=== PATIENT | male | born 1955 | race Caucasian/White ===

== ENCOUNTER 2019-12-11 08:41 | Outpatient (CLI) | payer OTHER, SELFPAY ==
--- NOTE | 2019-12-11 08:51 | CT_ITS ---
WS: [id number] CT ABDOMEN PELVIS TECHNIQUE: Contrast-enhanced CT of the abdomen and pelvis with coronal and sagittal reformatted image s. CLINICAL INFORMATION: ENLARGED SPLEEN COMPARISON: None. DLP: 1113.[address] scans at [facility] use at least one of these dose optimization techniques: automat ed exposure control; mA and/or kV adjustment per patient size (includes targeted exams where dose is matched to clinical indication); or iterative reconstruction. FINDINGS: Hepatomegaly with slightly cirrhotic contour to the liver. Coarse hepatic attenuation with fatty infi ltration. Splenomegaly measuring 14 cm [id number]. Recommend correlation with liver function tests. Shotty lymph nodes in the aayush hepatis and periaortic. Normal GE junction. Lung bases are well aera pedro. Adrenal glands are normal. Normal renal parenchymal enhancement. No hydronephrosis. Normal calib er abdominal aorta. Moderate aortic calcification. Cholelithiasis. Diverticulosis. No evidence of acute diverticulitis. Fat-containing umbilical hernia. Slight anteroli sthesis L5 on S1. Left L5-S1 spondylolysis. CT/CT abdomen pelvis w con* [id number] IMPRESSION: 1. Hepatomegaly and splenomegaly. Slightly cirrhotic capsular contour to the l iver with coarse fatty infiltration. Recommend correlation with cirrhosis and l iver function tests. 2. Cholelithiasis. This could be further evaluated with ultrasound. 3. Moderate abdominal aortic calcification. 4. No hydronephrosis. 5. Diverticulosis. No evidence of acute diverticulitis.
[2019-12-11] MEDS: iohexol 300 mg/mL 100 mL Btl IV (10:21)
== END 2019-12-11 08:42 | disposition home or self-care (01) ==
PROVIDERS: Family Provider Emergency Medicine Emergency Medical Services; PCP Internal Medicine; Visit Provider Emergency Medicine Emergency Medical Services
DX: R16.0 Hepatomegaly, not elsewhere classified (principal); R16.1 Splenomegaly, not elsewhere classified; K76.0 Fatty (change of) liver, not elsewhere classified; K80.80 Other cholelithiasis without obstruction; K57.90 Diverticulosis of intestine, part unspecified, without perforation or abscess without bleeding; I70.0 Atherosclerosis of aorta
CPT/HCPCS: 74177; Q9967

== ENCOUNTER 2019-12-18 12:56 | Outpatient (CLI) | payer OTHER, SELFPAY ==
[2019-12-18 13:30] LABS: Basophils % 0.5 %; Eosinophils # 0.2 10^3/uL (0.0-0.8); Eosinophils % 3.4 %; Hematocrit 41.5 % (42.0-52.0); Hemoglobin 13.1 g/dL (11.7-16.6); Lymphocytes # 1.8 10^3/uL (0.8-4.8); Lymphocytes % 32.5 %; Mean Corpuscular HGB Conc 31.6 g/dL (30.0-36.0); Mean Corpuscular Hemoglobin 30.1 pg (28.0-34.0); Mean Corpuscular Volume 95.4 fL (80-94); Mean Platelet Volume 10.3 fL (7.4-10.4); Monocytes # 0.4 10^3/uL (0.2-0.9); Monocytes % 7.1 %; Neutrophils # 3.1 10^3/uL (1.8-7.7); Neutrophils % 56.1 %; Nucleated Red Blood Cells % 0 %; Platelet Count 133 10^3/cmm (130-400); Red Blood Count 4.35 10^6/uL (4.1-5.3); Red Cell Distribution Width 17.9 % (12.1-15.1); White Blood Count 5.5 10^3/uL (4.0-10.0)
--- NOTE | 2019-12-18 15:06 | ONC CON_ITS ---
Dr. Pugh New Patient Note Patient: Ron Wang Unit #: [id number]: 1955 Dicatated By: Lul Pugh M.D.Date of Visit: Dec 18, 2019 Onc MED New Patient/Consult Referring Physician: Dr. ANNE BARAJAS M.D. History of Present Illness: Mr. Ron Wang, is a 64-year-old gentleman with history of fatty liver, recently diagnosed with iron deficiency anemia, his lab done on 11/10/2019 showed white blood count 6.1, hemoglobin 10.9 platelets 56,000, repeat CBC on 11/21/2019 showed white blood count 5 hemoglobin 10.7 crit 34.1 platelets 52,000, as per PMDs note his hemoglobin was 14 g in April 2019. Patient was started on oral iron supplement once a day in October 2019, he is tolerating it well denies any indigestion denies any constipation denies any abdominal pain or cramps., Denies any shortness of breath or palpitation, denies any melena or hematochezia but darker stools due to oral iron. No hemoptysis or hematemesis. No jaundice. No dyspnea on exertion. Patient has never received blood transfusion. Last colonoscopy was done few months back showed polyp which was removed and it was negative. Patient has history of fatty liver, now being followed by PMD. Patient has CT scan of abdomen pelvis done on 12/11/2019 which shows hepatomegaly with cirrhosis and splenomegaly, spleen is 14 cm and some shotty lymph nodes in aayush hepatis and para-aortic area. Patient denies alcohol use but smoke about 2 packs a day. Denies any night sweats, or weight loss or recent fevers or peripheral lymphadenopathy Past Medical History: Mr. Wang's medical history consists of diabetes. Past Surgical History: Mr. Wang's surgical/procedural history consists of appendectomy, cataract excision, clavical repair, and meniscus removed from right knee. Medications: Albuterol Sulfate 1 Puff(s) (of 108 (90 base) mcg/act) Aerosol Powder, Breath Activated Inhalation daily, Marilin-Keeling 1 Tablet Tablet, effervescent Oral daily, Ferrous Sulfate 1 Tablet (of 325 (65 fe) mg) Oral daily, Furosemide 1 Tablet (of 40 mg) Oral b.i.d., Lantus 20 Units (of 100 Units/mL) Subcutaneous daily, NovoLOG 6 Units (of 100 Units/mL) Subcutaneous t.i.d., Olodaterol HCl 1 Puff(s) (of 2.5 mcg/act) Aerosol, solution Inhalation daily, Pantoprazole Sodium 1 Tablet (of 40 mg) Tablet, enteric coated Oral daily, Potassium Chloride ER 2 Tablet (of 20 meq) Tablet, controlled release Oral daily, Sertraline HCl 0.5 Tablet (of 100 mg) Oral daily, Ultra Epps 3 1 Capsule (of 1000 mg) Oral daily, Vitamin D 1 Tablet Oral daily Allergies: No Known Allergies. Social History: Mr. Wang is . He is a daily smoker who has smoked 2.0 packs/day for 50 years. He has no history of drinking. Family History: The family history is unremarkable. Review Of Symptoms: Constitutional - Appetite is good and weight is stable. No fever, chills, hot flashes, or night sweats. Energy level is fair, ENMT - No sinus congestion/drainage. No mouth sores. No sore throat or difficulty swallowing, Hematologic/Lymphatic - No abnormal bruising or bleeding, Respiratory - No shortness of breath. No cough. No pleuritic pain or hemoptysis, Cardiovascular - No angina pain. No palpitations, Gastrointestinal - No nausea or vomiting. No heartburn or acid reflux. No diarrhea or constipation. No blood in the stool or black stools, Genitourinary (M) - No dysuria or hematuria. No urinary frequency. No urgency or incontinence, Musculoskeletal - No joint or bone pain, Neurologic - No headache or dizziness. No numbness/paresthesias or other focal neurologic symptoms, Psychiatric - No anxiety or depression. No insomnia. Vital Signs: Most recent vitals are not available for this patient. Performance Status: 0 - Fully active, able to carry on all predisease activities without restrictions. (ECOG) Physical Examination: ENMT - No oral exudates, ulcers, masses, thrush or mucositis. Oropharynx clear. Tongue normal.no peripheral lymphadenopathy, Respiratory - Lungs are clear to auscultation without rhonchi or wheezing, Cardiovascular - Regular rate and rhythm of heart, Abdomen - Non-tender, non-distended Good bowel sounds. No guarding or rebound tenderness. No pulsatile masses, Extremities - no edema. Lab/Imaging: Most recent lab results are not available for this patient. Impression: Iron deficiency anemia etiology unclear could be chronic GI blood loss or iron malabsorption but less likely. Patient had colonoscopy done recently, showed a polyp which was removed and it was benign. Thrombocytopenia etiology could be due to splenic sequestration as recently done CT scan of abdomen shows splenomegaly or low-grade ITP or medication. History of fatty liver Obesity Plan: Discussed with patient regarding his labs from today shows white blood count 5.5 hemoglobin 13.1 g hematocrit 41.5, MCV 95.4 platelets 133,000 with a normal differential Clinically, patient is doing well, no signs symptoms, follow-up lab shows normalization of hemoglobin with iron supplements, he is tolerating oral iron well. So we will continue oral iron and patient return to clinic in one month with CBC and iron studies then plan accordingly Recent Episode of moderate thrombocytopenia with no evidence of gross bleeding, now follow-up lab done today showed resolution of thrombocytopenia, at this point we will monitor his platelet count and again etiology could be low-grade self-limiting ITP or mild splenic sequestration. As far as hepatomegaly with cirrhosis seen on CT scan of abdomen done on 12/11/2019 is concern, we will suggest referral to hepatology for evaluation, if patient has portal hypertension then need to monitor him closely and evaluate him for possible esophageal varices causing GI bleeding thus iron deficiency anemia. And splenomegaly causing thrombocytopenia. Next Patient will return to clinic in one month with CBC and iron studies Signed By: Lul Pugh M.D. <<Signature on File>>
== END 2019-12-18 12:57 | disposition home or self-care (01) ==
LOC: ONCMED 12:59
PROVIDERS: Family Provider Emergency Medicine Emergency Medical Services; PCP Emergency Medicine Emergency Medical Services; Referring Provider Emergency Medicine Emergency Medical Services; Visit Provider Internal Medicine Hematology & Oncology
DX: D50.9 Iron deficiency anemia, unspecified (principal); K76.0 Fatty (change of) liver, not elsewhere classified; R16.2 Hepatomegaly with splenomegaly, not elsewhere classified; K74.60 Unspecified cirrhosis of liver; F17.210 Nicotine dependence, cigarettes, uncomplicated; E11.9 Type 2 diabetes mellitus without complications; D69.6 Thrombocytopenia, unspecified; E66.9 Obesity, unspecified; Z79.51 Long term (current) use of inhaled steroids; Z79.4 Long term (current) use of insulin; Z86.010 Personal history of colon polyps
CPT/HCPCS: 85025; 99204

== ENCOUNTER 2020-01-02 12:52 | Outpatient (CLI) | payer OTHER, SELFPAY ==
--- NOTE | 2020-01-02 13:30 | USCV_ITS ---
Ron Wang Age: 64 Gender: M : 1955 Exam Date: 01/02/2020 13:04 Ordering Phys: Randall Thomas MD ([email or web address]) Technologist: Francheska Siddiqui Exam Location: [facility] [place] Indication: LV FUNCTION BP: 127 / 68 HR: 89 Rhythm: Sinus Technical Quality: Adequate MEASUREMENTS (Male / Female) Normal Values 2D ECHO LV Diastolic Diameter PLAX 3.9 cm 4.2 - 5.9 / 3.9 - 5.3 cm LV Systolic Diameter PLAX 2.4 cm LV Chamber Size 3.4 cm IVS Diastolic Thickness 1.3 cm 0.6 - 1.0 / 0.6 - 0.9 cm IVS Systolic Thickness 1.6 cm LVPW Diastolic Thickness 1.8 cm 0.6 - 1.0 / 0.6 - 0.9 cm LVPW Systolic Thickness 2.3 cm RV Chamber Size 2.9 cm LVOT Diameter 2.0 cm LV Ejection Fraction 2D Teich 67.3 % LV Ejection Fraction MOD 2C 70.8 % LV Ejection Fraction 2C AL 70.9 % LA Diameter 3.1 cm LA Width 2.6 cm LA Height 4.5 cm RA Width 2.0 cm RA Height 4.1 cm M-MODE LV Diastolic Diameter MM 4.8 cm 4.2 - 5.9 / 3.9 - 5.3 cm LV Systolic Diameter MM 2.5 cm LV Ejection Fraction MM Teich 78.7 % IVS Diastolic Thickness MM 1.0 cm 0.6 - 1.0 / 0.6 - 0.9 cm IVS Systolic Thickness MM 1.4 cm LVPW Diastolic Thickness MM 1.0 cm 0.6 - 1.0 / 0.6 - 0.9 cm LVPW Systolic Thickness MM 1.4 cm Aortic Annulus Diameter 3.2 cm LA Ao Ratio MM 1.0 MV E Point Septal Separation 0.4 cm DOPPLER AV Peak Velocity 174.0 cm/s LVOT Peak Velocity 137.0 cm/s AV Area Cont Eq vti 2.1 cm squared AV Area Cont Eq pk 2.6 cm squared MV Area PHT 4.2 cm squared Mitral E to A Ratio 1.4 MV E' Velocity 152.0 cm/s TR Peak Velocity 276.0 cm/s TR Peak Gradient 30.4 mmHg TV Peak E Velocity 53.0 cm/s Right Atrial Pressure 3.0 mmHg Pulmonary Artery Systolic Pressu 33.5 mmHg PV Peak Velocity 95.0 cm/s RV Acceleration Time 0.2 s RV Ejection Time 0.4 s RV AcT/ET 0.5 FINDINGS Left Ventricle Normal left ventricular cavity size. Normal left ventricular systolic function. No regional wall motion abnormalities. Left ventricular ejection fraction is estimated at 60 %. Grade II/IV diastolic dysfunction, moderately elevated filling pressures. Right Ventricle The right ventricle is normal in size and function. Right Atrium The right atrium is normal in size. Left Atrium The left atrium is normal in size. Mitral Valve Mildly thickened mitral valve. No mitral valve stenosis. Trace mitral valve regurgitation. Aortic Valve Aortic valve sclerosis without stenosis or regurgitation. Tricuspid Valve Structurally normal tricuspid valve without significant stenosis or regurgitation. Pulmonary artery systolic pressure is normal. Pulmonic Valve Structurally normal pulmonic valve without significant stenosis. There is no pulmonic regurgitation. Pericardium Normal pericardium without effusion. Aorta Normal ascending aorta dimension. CONCLUSIONS 1-Normal left ventricular cavity size. Normal left ventricular systolic function. No regional wall motion abnormalities. Left ventricular ejection fraction is estimated at 60 %. Grade II/IV diastolic dysfunction, moderately elevated filling pressures. 2-No significant valve abnormalities. 3-There is no pericardial effusion. 4-Pulmonary artery systolic pressure is within normal limits. 5-There are no prior echocardiogram studies to compare. Randall Thomas MD (Electronically Signed) Final Date: 02 January 2020 18:20 S
== END 2020-01-02 12:53 | disposition home or self-care (01) ==
LOC: US 12:53
PROVIDERS: Family Provider Emergency Medicine Emergency Medical Services; PCP Emergency Medicine Emergency Medical Services; Visit Provider Internal Medicine Cardiovascular Disease
DX: I08.0 Rheumatic disorders of both mitral and aortic valves (principal); R06.02 Shortness of breath; R07.9 Chest pain, unspecified
CPT/HCPCS: 93306

== ENCOUNTER 2020-01-05 08:22 | Outpatient (CLI) | payer OTHER, SELFPAY ==
--- NOTE | 2020-01-05 | USCV_ITS ---
Ron Wang Age: 64 Gender: M : 1955 Exam Date: 01/05/2020 08:49 Ordering Phys: Randall Thomas MD ([email or web address]) Technologist: [place] [facility] [place]: bilateral leg pain RIGHT LEFT Brachial 159.00 mmHg Brachial 157.00 mmHg Pressure (mmHg) Waveform Pressure (mmHg) Waveform 129.00 RN CLINICIAN 110.00 120.00 DPA 155.00 0.81 Ankle/Brachial Index 0.97 84.00 Pre-Exercise Toe Pressure 116.00 0.53 Pre-Exercise Toe/Brachial Index 0.73 FINDINGS Normal resting MAGDALENE and TBI on the left side. Diminished resting MAGDALENE and TBI on the right side CONCLUSIONS Features of moderate peripheral artery disease on the right side. No significant arterial obstruction on the left side Dr Víctor Hurt MD FAC (Electronically Signed) Final Date: 08 January 2020 09:01 S
[2020-01-05 08:38] VITALS: BMI 36.1
--- NOTE | 2020-01-05 08:38 | ECG_ITS ---
NAME OF STUDY: LEXISCAN SESTAMIBI STRESS TEST INDICATION: [Chest Pain, ] Please note that this is a electrocardiogram portion of the Lexiscan sestamibi stress test. Perfusion imaging will be documented on a separate report. Data At baseline heart rate was noted to be 129 bpm. Baseline blood pressure noted to be 166/75 Target heart rate was 133 . Maximum Heart rate achieved was 93 . Maximum blood pressure achieved was 165/69 mmHg. Reason for, ending this test was completion of the stress protocol. Patient did have sob symptoms during this procedure, improved in recovery Electrocardiogram Baseline normal sinus rhythm with no ST changes. Exercise EKG at peak exercise reveals normal sinus rhythm with no new ST changes . No cardiac arrhythmias noted. Conclusions 1. Electrocardiographic component of this cardiac stress test is negative for cardiac ischemia. 2. Please see separate report for report for the myocardial perfusion imaging Electronically Signed On 01-11-2020 12:28:10 CDT by Shelia Thomas [email or web address]
--- NOTE | 2020-01-05 08:39 | NMCV_ITS ---
NM lynn perf SPECT r/s* [id number] Ron Wang Age: 64 Gender: M : 1955 Exam Date: 01/05/2020 09:26 Ordering Phys: Randall Thomas MD ([email or web address]) Technologist: JOSEY Person Exam Location: [facility] Indications: Chest pain STRESS TEST Please see separate stress test report in [facility] for full findings IMAGE PROTOCOL Rest/Stress 1 Lexiscan Day Radiopharmaceutical Dose (mCi) Administration Site Administered by Rest: Tc-99m 10.5 IV JOSEY Person Sestamibi Stress:Tc-99m 32.9 IV JOSEY Geronimo Sestamibi Rest: 05-Jan-2020 60 Discovery 630 Stress: 05-Jan-2020 45 Discovery 630 0.4mg Lexiscan. Images obtained in supine and prone position. SPECT RESULTS Technical Quality: Excellent Raw Data Analysis: Normal Image Corrections: No attenuation or motion correction applied Summed Stress Score: 0 Summed Rest Score: 0 Summed Difference Score: 0 PERFUSION FINDINGS SPECT images demonstrate homogeneous tracer distribution throughout the myocardium. FUNCTIONAL RESULTS (calculated via Gated SPECT) Stress Image LV EF (%): 62 Stress EDV (mL):128 TID: 1.05 Stress ESV (mL):49 Rest Image LV EF (%): 62 FUNCTIONAL FINDINGS: There is normal left ventricular systolic function. IMPRESSIONS Myocardial perfusion imaging is normal and low probability for obstructive coronary disease. EKG segment will be documented separately Randall Thomas MD (Electronically Signed) Final Date: 05 January 2020 15:22 S
[2020-01-05] MEDS: regadenoson 0.4 Mg/5 ml Syringe IVP (10:07)
[2020-01-05 10:10] VITALS: BP 170/71; PULSE 92
== END 2020-01-05 08:23 | disposition home or self-care (01) ==
LOC: CDL 08:22
PROVIDERS: Family Provider Emergency Medicine Emergency Medical Services; PCP Emergency Medicine Emergency Medical Services; Visit Provider Internal Medicine Cardiovascular Disease
DX: R06.02 Shortness of breath (principal); R07.9 Chest pain, unspecified; M79.605 Pain in left leg; M79.604 Pain in right leg; I73.9 Peripheral vascular disease, unspecified
CPT/HCPCS: 78452; 93017; 93922; A9500; J2785

== ENCOUNTER 2020-01-23 11:30 | Outpatient (CLI) | payer OTHER, SELFPAY ==
[2020-01-23 18:33] LABS: Ferritin 50 ng/mL (30-400); Iron 293 ug/dL (59-158)
[2020-01-23 18:40] LABS: Basophils % 0.6 %; Eosinophils # 0.2 10^3/uL (0.0-0.8); Eosinophils % 2.7 %; Hematocrit 42.7 % (42.0-52.0); Hemoglobin 13.7 g/dL (11.7-16.6); Lymphocytes % 29.9 %; Mean Corpuscular HGB Conc 32.1 g/dL (30.0-36.0); Mean Corpuscular Hemoglobin 31.4 pg (28.0-34.0); Mean Corpuscular Volume 97.7 fL (80-94); Mean Platelet Volume 11.2 fL (7.4-10.4); Monocytes # 0.5 10^3/uL (0.2-0.9); Monocytes % 7.9 %; Neutrophils # 3.9 10^3/uL (1.8-7.7); Neutrophils % 58.6 %; Nucleated Red Blood Cells % 0 %; Platelet Count 121 10^3/cmm (130-400); Red Blood Count 4.37 10^6/uL (4.1-5.3); Red Cell Distribution Width 17.2 % (12.1-15.1); White Blood Count 6.7 10^3/uL (4.0-10.0)
[2020-01-23 18:53] LABS: Percent Saturation 94.8 % (20-50); Total Iron Binding Capacity 309 mcg/dl; Unsaturated Iron Binding 16 ug/dL (112-347)
[2020-01-23 19:59] LABS: Slide Review Slide Review Perform
== END 2020-01-23 11:31 | disposition home or self-care (01) ==
LOC: ONCMED 01-24 09:11
PROVIDERS: Family Provider Emergency Medicine Emergency Medical Services; PCP Emergency Medicine Emergency Medical Services; Visit Provider Internal Medicine Hematology & Oncology
DX: D50.9 Iron deficiency anemia, unspecified (principal)
CPT/HCPCS: 36415; 82728; 83540; 83550; 85025

== ENCOUNTER 2020-02-19 08:41 | Outpatient (CLI) | payer OTHER, SELFPAY ==
--- NOTE | 2020-02-19 09:00 | CT_ITS ---
WS: [id number] CTA ABDOMINAL AORTA WITH RUNOFF TECHNIQUE: Contrast enhanced CTA of the abdominal aorta with bilateral lower extremity runoff. Multip lanar reformatted images were obtained. MIP reformats were also reviewed. CLINICAL INFORMATION: MAGDALENE abnormal with blockages in both legs. COMPARISON: None. DLP: 1570.[address] scans at [facility] use at least one of these dose optimization techniques: automat ed exposure control; mA and/or kV adjustment per patient size (includes targeted exams where dose is matched to clinical indication); or iterative reconstruction. FINDINGS: Hepatomegaly with cirrhotic contour to the liver. Coarse hepatic attenuation with fatty infiltration. Splenomegaly measuring 14 cm. Stable Shotty lymph nodes in the aayush hepatis and periaortic. Normal GE junction. Lung bases are well aerated. Adrenal glands are normal. Normal renal parenchymal enhance ment. No hydronephrosis. Normal caliber abdominal aorta. Moderate aortic calcification. Cholelithiasi s. Diverticulosis. No evidence of acute diverticulitis. Fat-containing umbilical hernia. Slight anter olisthesis L5 on S1. Left L5-S1 spondylolysis. Moderate calcified atheromatous disease at the celiac and SMA origins which remain patent. Poor bolus runoff in the bilateral lower extremities. Images are somewhat limited. RIGHT: Right common iliac artery is patent with moderate calcified atheromatous disease. External and internal iliac arteries are patent with moderate calcified atheromatous disease. External iliac luis m ry is patent with mild to moderate segmental stenosis. Right common femoral artery is patent. Moderat e narrowing at the SFA origin. Superficial femoral artery appears patent to the adductor hiatus. Deep femoral artery is patent. Densely calcified popliteal artery at the adductor hiatus with severe narr owing. Segmental flow in a tiny popliteal artery. Dense calcification at the trifurcation. Dense calc ification of the tibioperoneal trunk. Dominant anterior tibial runoff to the ankle. Poor posterior ti bial and peroneal runoff. LEFT: Common iliac artery is patent with dense calcification. External and internal iliac arteries ap pear patent with dense calcification. Common femoral artery is patent. Moderate narrowing at the supe rficial femoral artery origin. Dense calcification involving the deep femoral artery. Superficial fem oral artery is patent to the adductor hiatus. Popliteal artery is patent with mild segmental narrowin g. Popliteal artery appears patent to the trifurcation. Dominant anterior tibial and peroneal runoff to the ankle. 3. RIGHT: Right superficial femoral artery is patent to the adductor hiatus. Popliteal artery is daily rly occluded above the knee with only segmental flow visualized. Poor runoff to the right lower extre mity with a dominant anterior tibial artery. 4. LEFT: Approximately 50% stenosis involving the left common femoral artery and superficial femoral artery origins which remain patent. Superficial femoral artery is patent to the adductor hiatus. Pop liteal artery is patent. Dominant anterior tibial and peroneal runoff to the left ankle. CT/CT angio abd aorta runof [id number] IMPRESSION: 1. Limited contrast opacification bilateral lower extremities limits runoff 2. Normal caliber abdominal aorta with moderate calcified atheromatous disease . No significant aneurysm.
[2020-02-19 09:26] LABS: Blood Urea Nitrogen 9 mg/dL (8-23); Glomerular Filtration Rate 67.4 mL/min (90-130)
[2020-02-19] MEDS: iohexol 350 mg/mL 100 mL Btl IV (09:44)
== END 2020-02-19 08:42 | disposition home or self-care (01) ==
LOC: RADWPI 08:45
PROVIDERS: Family Provider Emergency Medicine Emergency Medical Services; PCP Emergency Medicine Emergency Medical Services; Visit Provider Internal Medicine Cardiovascular Disease
DX: R68.89 Other general symptoms and signs (principal); I73.9 Peripheral vascular disease, unspecified
CPT/HCPCS: 75635; 82565; 84520; Q9967

== ENCOUNTER 2020-03-15 10:17 | Outpatient (CLI) | payer OTHER, SELFPAY ==
[2020-03-15 12:41] VITALS: O2SAT 96
--- NOTE | 2020-03-15 14:23 | PFTS_ITS ---
Date of Study:03/15/20 Date of Dictation: MECHANICS: Forced vital capacity (FVC) is reduced. Forced expiratory volume in one second (FEV1) is reduced. FEV1/FVC is normal. FLOW VOLUME LOOP: Narrow. LUNG VOLUMES: Total lung capacity (TLC) is normal. Residual volume (RV) is increased. DIFFUSING CAPACITY FOR CARBON MONOXIDE: Normal. INTERPRETATION: The spirometry is consistent with moderately severe restriction. However this is not supported by a normal total lung capacity. This pulmonary function test would be consistent with nonspecific ventilatory limitation. The patient has evidence of air trapping likely secondary to small airways disease. Gas exchange (DLCO) is normal. MTDD
== END 2020-03-15 10:18 | disposition home or self-care (01) ==
LOC: RT 10:19
PROVIDERS: PCP Emergency Medicine Emergency Medical Services; Visit Provider Internal Medicine Critical Care Medicine
DX: J44.9 Chronic obstructive pulmonary disease, unspecified (principal)
CPT/HCPCS: J7611

== ENCOUNTER → 2020-03-27 08:37 | Outpatient (BNVA) | payer OTHER, SELFPAY | PROVIDERS: PCP Emergency Medicine Emergency Medical Services; Visit Provider Internal Medicine Cardiovascular Disease | DX: I73.9 Peripheral vascular disease, unspecified (principal) | CPT/HCPCS: 80048; 85025; 87635 ==

== ENCOUNTER 2020-04-02 10:33 | Observation (INO) | payer OTHER, SELFPAY ==
[2020-04-01 09:57] VITALS: BMI 35.4
[2020-04-02] VITALS (27 sets, daily range): BP systolic 129–177; BP diastolic 64–97; PULSE 76–96; RESP 16–20; TEMP 36.7–36.9; O2SAT 88–99
--- NOTE | 2020-04-02 07:30 | XACV_ITS ---
Wt: 103 kg BSA: 2.24 m2 Any Known Allergies: Other Gender: Male : 1955 Exam Type: Invasive Peripheral Vascular Procedure(s): Procedure Description: Peripheral Cath Diagnostic Procedure Procedure Description: Abdominal aortic angiography Procedure Description: Lower extremities' angiography Procedure Description: Peripheral vascular Intervention Procedure Description: PV Balloon Procedure Description: PV Atherectomy Procedure Description: Perclose Exam Priority: Routine Lower Extremity Interventional Findings Left common femoral artery was used to approach chronic occlusion of distal right SFA. Glidewire with the help of seeker catheter was used to cross the lesion. Seeker catheter was used to exchange Viper wire, CSI atherectomy 2.0 bur device was used to perform the atherectomy multiple times followed by balloon angioplasty of the lesion using [place] 6 x 100 x 135 balloon. Excellent angiographic result with good flow was achieved in right SFA while below the knee three-vessel runoff was noted into the foot. Conclusions Peripheral Procedure Description: Critical limb ischemia of the right leg and foot , Tamiko grade V :Emil stage IV. Procedure#1 Abdominal aorta: Luminal irregularities#2 Right renal artery has luminal irregularities. Left renal artery is not well visualized#3 Right common iliac artery has luminal irregularity#4 Left common iliac artery has luminal irregularity #5 Left and right internal iliac artery has luminal irregularity#7 Right and left internal iliac artery has luminal irregularity#8 Left common femoral artery is luminal irregularity#9 Left and right profunda femoral artery has luminal irregularity#10 Right SFA has 100% chronic occlusion in its distal segment which reconstitute through collaterals at right popliteal artery#11 Left SFA has luminal irregularities, left popliteal artery has luminal irregularities, left tibioperoneal trunk has luminal irregularity, left anterior and posterior tibial artery and peroneal artery has luminal irregularity with good three-vessel runoff #12 Right tibioperoneal trunk has luminal irregularities right posterior tibial artery, right peroneal artery has luminal irregularity without significant stenosis, right anterior tibial artery has chronic occlusion in the proximal segment however it is reconstitute in mid to distal segment with three-vessel runoff in the foot. Recommendations 1-Return to inpatient for close monitoring and routine cath care 2-Risk factor modification for secondary prevention 3-Statin and aspirin 81 mg life--long, if tolerated 4-Patient was pre-loaded with 300 mg of Plavix, continue Plavix 75mg p.o. daily for at least one year. We will assess at the end of one year again to continue if further or not 5-Continue optimal medical management 6-Follow up with Dr. Thomas in four weeks and your primary care in 10 days. Hemodynamic Data Phase:Rest AO : 161.0 mmHg / 56.0 mmHg ( 89.0 mmHg ) @ 4:11:00 AM 160.0 mmHg / 55.0 mmHg ( 88.0 mmHg ) @ 4:12:00 AM 108.0 mmHg / 63.0 mmHg ( 85.0 mmHg ) @ 4:13:00 AM 139.0 mmHg / 65.0 mmHg ( 94.0 mmHg ) @ 4:29:00 AM 113.0 mmHg / 52.0 mmHg ( 78.0 mmHg ) @ 4:55:00 AM 115.0 mmHg / 55.0 mmHg ( 80.0 mmHg ) @ 4:56:00 AM Access Site Site: Left Femoral artery Sheath Size: 6 Fr Hemost... Method: Perclose (Lane) Hemost... Success: Successful Procedure Details Findings Procedure Consent Obtained. Pre-Procedure Time Out. Identified patient by full name and date of as verbalized by the patient/guarantor. Does the consent match the physician's order: Yes. Accurate & Complete Informed Consent: Yes. Inpatient/Outpatient History & Physical on Chart: Yes. If H&P is completed, is and addenduem needed: Yes; If yes, is the addendum complete: N/A. Visualize and Verify Site with Patient/Guarantor: N/A. Relevant Radiology Images available: N/A. Pre-op teaching completed and patient verbalized understanding. The risks, benefits, and alternatives of sedation and/or procedure were discussed by physician. The patient agrees to continue. Current diagnosis: PAD. PERRLA. Strong, equal hand manager mission bilaterally. Lungs clear x 5 lobes. IV Site on Arrival: 22 gauge in the left forearm. Pre Procedural Pulses: left dorsalis pedis was 2+. Pre Procedural Pulses: right dorsalis pedis was 1+. Pre Procedural Pulses: bilateral posterior tibial was Doppled. Oxygen started at 2liters/min via nasal canula. left groin was prepped with chloroprep then draped in the usual sterile fashion. Physician notified. Baseline sample Acquired. HR: 88 BPM. Patient's family unavailable. Equipment: Peripheral. Cardiac Cath Pack. ACIST Manifold Kit Model BT 2000. Heparinized Saline (2 units/mL), 1000 mL bag. Inventory is JJ 6F 11cm Vianey Plus Sheath. Inventory is CK 6 FR FLEXOR SHEATH 45CM. Physician arrived. Physician scrubbed in. Immediate Pre-Procedure Time Out. Correct Patient: Yes; Correct Procedure: Yes; Correct Site: Yes; Correct Patient Position: Yes; Correct Supplies: Yes; Dried Flammable Prep: Yes; Blood Products Available: N/A;. Procedure started. Lidocaine 1% infiltrated to the left groin. Arterial access obtained with micropuncture set. A CORDIS 5F UF catheter 65cm was advanced over the wire and used for Abdominal aortogram. Abdominal aortogram performed in AP @ 10 mL/sec for a total of 30 mL. Glidewire inserted and placed in the right SFA. UF catheter placed in right common iliac. Wire removed. Right common iliac selected and arteriogram with runoff performed @ 10 mL/sec for a total of 30 mL. Catheter removed. Sheath upsized to a 6 Fr. Glidewire and Seeker inserted past lesion in distal SFA. [place] wire exchanged for Viper wire. Viper wire seated in the anterior tib. Seeker removed. CSI Diamondback inserted to lesion in distal RSFA. Pass Number: 1 A baltazar was advanced across the Distal Superficial Femoral, Right for 0:00 seconds at 0 rpm?s. Baltazar and viper wire removed. Results checked. Seeker and glidewire inserted to lesion. Ayad Boston RT(R), RETAIL STOCKER was relieved by Kike Aiken RN, RETAIL STOCKER as monitoring person. Inflation number : 1 A AB ARMADA 35 OTW [id number] was prepped and advanced across the Distal Superficial Femoral, Right1 , then inflated to 10 LESLEE for 1:04 seconds. Inflation number: 2 The AB ARMADA 35 OTW [id number] was reinflated across the Distal Superficial Femoral, Right1, to 10 LESLEE for 2:01 seconds. Balloon out over the glidewire. Right superficial femoral selected and arteriogram performed. Abdominal DSA angio perfomed of the distal abdominal aorta at 10 ml/sec for a total of 20 ml. Sheath exchanged for a 6 fr short sheath. Left common femoral selected and arteriogram with runoff performed @ 10 mL/sec for a total of 30 mL. Left Common femoral angio performed to assess for perclose. A Perclose ([place]) was unsuccessful at obtaining hemostatsis at the Left Femoral artery insertion site. Perclose placed without complications. Unsuccessful closure. 6F Sheath reinserted and sutured in place. No signs or symptoms of hematoma noted. Sterile dressing applied per usual sterile fashion. Post Procedure: Pulses reassessed and unchanged. Post Procedure: right dorsalis pedis pulse 2+. Post Procedure: right posterior tibial pulse 2+. PERRLA. Strong, equal hand manager mission bilaterally. No VTE prophylaxis required. Medication's Wasted: Lidocaine 1% = 0 mL. Total IV fluids: 50 mL. Fluoro: 18:06. Contrast type used: Visipaque 320 mgI/mL, 500 mL bottle. [id number]. Post-op diagnosis: PAD, LOWER LEG ISCHEMIA. Complications: NONE. Estimated blood loss: 5mL-10mL. Medication's Wasted: Nitro = 49.0 mg. Procedure completed. Patient transferred by bed to 1st floor. Admit Source: Out Patient. Vital chart was stopped. Sheath(s) sutured into position with 2-0 silk and sterile 4x4's and Op-site applied over the site. No oozing or signs and symptoms of hematoma noted. Procedure Medications Start: 9:07 AM Stop: 9:07 AM Medication: Versed Amount: 1 mg Route: I.V. Start: 9:07 AM Stop: 9:07 AM Medication: Fentanyl Amount: 50 mcg Route: I.V. Start: 9:31 AM Stop: 9:31 AM Medication: Versed Amount: 1 mg Route: I.V. Start: 9:31 AM Stop: 9:31 AM Medication: Fentanyl Amount: 50 mcg Route: I.V. Start: 9:31 AM Stop: 9:31 AM Medication: Heparin Amount: 5000 units Route: I.V. Start: 9:53 AM Stop: 9:53 AM Medication: Nitrogylcerin Amount: 400 mcg Route: I.A. I, the attending physician, have reviewed and verified all procedure medications. Yes, all medications given per verbal order History/Risk Factors Hypertension: Yes Dyslipidemia: Yes Diabetic Therapy: Insulin Peripheral Arterial Disease (PAD): Yes Myocardial Infarction ([place]): Yes Tobacco Use: Current/Recent(w/in 1 year) Report Signatures Finalized by:Randall Thomas MD on 04/13/2020 6:06:20 PM
[2020-04-02] MEDS: diphenhydrAMINE 50 mg Capsule PO (07:53)
--- NOTE | 2020-04-02 09:00 | W.PM.OPSUD ---
Surgery/Procedure H&P Update DATE OF PROCEDURE: April 02, 2020 DATE H&P PERFORMED: 03/04/20 PREOP DIAGNOSIS: Lifestyle limiting claudication, severe peripheral vascular disease PLANNED PROCEDURE: Operation Date: 04/02/20 08:30 Proposed Procedures p Peripheral Diagnostic(Not Applicable) - Randall Thomas MD PATIENT REASSESSED PRIOR TO SEDATION, WITH NO CHANGE NOTED: Yes PHYSICAL EXAM: alert, oriented x 3, clear to auscultation bilaterally and regular rate & rhythm AIRWAY EVAL/ANESTHESIA PLAN: ASA II and Risks, benefits & alternatives of sedation and/or procedure discussed
[2020-04-02] MEDS: clopidogrel 300 mg Tablet 600 MG PO (11:25)
[2020-04-02] MEDS: aspirin 325 mg Tablet PO (11:25)
--- NOTE | 2020-04-02 12:33 | PC.NURSE ---
PATIENT NOTED TO HAVE A 13 BEAT RUN OF AN ABNORMAL ECTOPIC HEART RHYTHM. DR CLINTON NOTIFIED. PT BLOOD PRESSURE NOTED TO BE MILDLY ELEVATED AT 161/79. ORDERED ONE TIME DOSE OF 25 MG PO METOPROLOL.
[2020-04-02 12:37] LABS: Partial Thromboplastin Time 42.5 SECONDS (23.9-36.7)
[2020-04-02] MEDS: metoprolol tartrate 25 mg Tablet PO (14:15)
[2020-04-02] MEDS: albuterol 8 gm MDI 2 PUFF INHALATION ×2 (14:15→19:58)
--- NOTE | 2020-04-02 17:34 | PC.NURSE ---
SHEATH REMOVED PER PROTOCOL AT 1330 PER OH ROSA. NO HEMATOMA. NO OTHER ISSUES NOTED. NO COMPLAINTS BY PATIENT.
--- NOTE | 2020-04-02 20:02 | PC.NURSE ---
Report received from off going shift RN at 1900. Left groin angiogram site assessed and dressing clean, dry, and intact. No complaints of pain to site. Site soft to touch. Pt ambulated in tineo at 1930. No changes in groin site. tolerated ambulation in hallway without any symptoms. Received discharge orders. In progress.
--- NOTE | 2020-04-02 21:40 | PC.NURSE ---
Pt received discharge instructions from this RN, as well as handouts. No questions or concerns at this time. Left groin access site soft to touch after ambulation and bedrest discontinued. Dr. Thomas at bedside and reviewed discharge instructions and follow up. Pt ambulated to exit where picked him up to return to home.
--- NOTE | 2020-04-03 16:26 | PC.RESP ---
SMOKING CESSATION INFORMATION SENT TO PATIENT.
== END 2020-04-02 20:26 | disposition home or self-care (01) ==
LOC: CSU 10:34
PROVIDERS: Admitting Provider Internal Medicine Cardiovascular Disease; PCP Emergency Medicine Emergency Medical Services; Visit Provider Internal Medicine Cardiovascular Disease
DX: I77.1 Stricture of artery (principal); I73.9 Peripheral vascular disease, unspecified; I50.32 Chronic diastolic (congestive) heart failure; I11.0 Hypertensive heart disease with heart failure; I10 Essential (primary) hypertension; E11.9 Type 2 diabetes mellitus without complications; Z79.4 Long term (current) use of insulin; E78.5 Hyperlipidemia, unspecified; J44.9 Chronic obstructive pulmonary disease, unspecified; G47.30 Sleep apnea, unspecified; F17.210 Nicotine dependence, cigarettes, uncomplicated; I25.2 Old myocardial infarction
CPT/HCPCS: 12345; 36415; 37225; 75625; 75716; 85730; 94640; C1724; C1725; C1760; C1769; C1887; C1894; G0378; J1644; J2001; J2250; J3010; J3490; J3535; J7030; J7050; Q0163; Q9967

== ENCOUNTER → 2020-04-09 12:26 | Outpatient (BNVA) | payer OTHER, SELFPAY | PROVIDERS: PCP Emergency Medicine Emergency Medical Services; Visit Provider Nurse Practitioner Family | DX: I73.9 Peripheral vascular disease, unspecified (principal) | CPT/HCPCS: 80048 ==

== ENCOUNTER 2020-04-10 10:05 | Outpatient (CLI) | payer OTHER, SELFPAY ==
[2020-04-10 11:00] LABS: Basophils % 0.7 %; Eosinophils # 0.1 10^3/uL (0.0-0.8); Eosinophils % 3.5 %; Hematocrit 35.6 % (42.0-52.0); Hemoglobin 10.3 g/dL (11.7-16.6); Lymphocytes # 1.2 10^3/uL (0.8-4.8); Lymphocytes % 29.9 %; Mean Corpuscular HGB Conc 28.9 g/dL (30.0-36.0); Mean Corpuscular Volume 110.6 fL (80-94); Mean Platelet Volume 10.4 fL (7.4-10.4); Monocytes # 0.3 10^3/uL (0.2-0.9); Monocytes % 7.7 %; Neutrophils # 2.3 10^3/uL (1.8-7.7); Nucleated Red Blood Cells % 0 %; Platelet Count 114 10^3/cmm (130-400); Red Blood Count 3.22 10^6/uL (4.1-5.3); Red Cell Distribution Width 14.8 % (12.1-15.1)
[2020-04-10 11:11] LABS: Ferritin 21 ng/mL (30-400); Iron 29 ug/dL (59-158); Percent Saturation 7.3 % (20-50); Total Iron Binding Capacity 395 mcg/dl; Unsaturated Iron Binding 366 ug/dL (112-347)
[2020-04-12 14:23] LABS: Vitamin B12 578 pg/mL (232-1245)
== END 2020-04-10 10:06 | disposition home or self-care (01) ==
PROVIDERS: PCP Emergency Medicine Emergency Medical Services; Visit Provider Internal Medicine Hematology & Oncology
DX: D50.9 Iron deficiency anemia, unspecified (principal)
CPT/HCPCS: 82607; 82728; 83540; 83550; 85025

== ENCOUNTER 2020-04-22 06:51 | Outpatient (RCR) | payer OTHER, SELFPAY ==
--- NOTE | 2020-04-11 11:06 | ONC FU_ITS ---
Dr. Pugh follow up note Patient: Ron Wang Unit #: [id number]: 1955 Dicatated By: Lul Pugh M.D.Date of Visit:Apr 11, 2020 Onc Med Follow-up/Prog Note History of Present Illness: Mr. Ron Wang, is a 65-year-old gentleman with history of fatty liver, recently diagnosed with iron deficiency anemia, his lab done on 11/10/2019 showed white blood count 6.1, hemoglobin 10.9 platelets 56,000, repeat CBC on 11/21/2019 showed white blood count 5 hemoglobin 10.7 crit 34.1 platelets 52,000, as per PMDs note his hemoglobin was 14 g in April 2019. Patient was started on oral iron supplement once a day in October 2019, he is tolerating it well denies any indigestion denies any constipation denies any abdominal pain or cramps., Denies any shortness of breath or palpitation, denies any melena or hematochezia but darker stools due to oral iron. No hemoptysis or hematemesis. No jaundice. No dyspnea on exertion. Patient has never received blood transfusion. Last colonoscopy was done few months back showed polyp which was removed and it was negative. Patient has history of fatty liver, now being followed by PMD. Patient has CT scan of abdomen pelvis done on 12/11/2019 which shows hepatomegaly with cirrhosis and splenomegaly, spleen is 14 cm and some shotty lymph nodes in aayush hepatis and para-aortic area. Patient denies alcohol use but smoke about 2 packs a day. Denies any night sweats, or weight loss or recent fevers or peripheral lymphadenopathy Came for follow-up, complaining of indigestion heartburn epigastric discomfort with oral iron so stopped taking it month or so ago now much better he also had EGD done about 2 months ago in [place], as per patient it showed hiatal hernia. No melena or hematochezia, no hemoptysis or hematemesis, no jaundice, no diarrhea or constipation no shortness of breath or palpitation at rest.No night sweats, no weight loss, no recurrent fever Medications: Albuterol Sulfate 1 Puff(s) (of 108 (90 base) mcg/act) Aerosol Powder, Breath Activated Inhalation daily, [place] 1 Tablet Tablet, effervescent Oral daily, Ferrous Sulfate 1 Tablet (of 325 (65 fe) mg) Oral daily, Furosemide 1 Tablet (of 40 mg) Oral b.i.d., Lantus 20 Units (of 100 Units/mL) Subcutaneous daily, NovoLOG 6 Units (of 100 Units/mL) Subcutaneous t.i.d., Olodaterol HCl 1 Puff(s) (of 2.5 mcg/act) Aerosol, solution Inhalation daily, Pantoprazole Sodium 1 Tablet (of 40 mg) Tablet, enteric coated Oral daily, Plavix 1 Tablet (of 75 mg) Oral daily, Potassium Chloride ER 2 Tablet (of 20 meq) Tablet, controlled release Oral daily, Sertraline HCl 0.5 Tablet (of 100 mg) Oral daily, Ultra [place] 3 1 Capsule (of 1000 mg) Oral daily, Vitamin D 1 Tablet Oral daily Allergies: No Known Allergies. Review of Systems: Review of Systems is not available for this patient. Vital Signs: Performed on Apr 11, 2020 10:09 Height - 67.00 in Weight - 223.0 lbs (HIGH) BSA - 2.12 sq.m BMI - 34.93 (HIGH) Temperature - 99.2 F (HIGH) Pulse - 76 /min Respiration - 18 /min BP - 134/66 mm(hg) O2 Sat - 99 % Pain - 0 Performance Status: 0 - Fully active, able to carry on all predisease activities without restrictions. (ECOG) Physical Examination: ENMT - No mouth sores, no thrush, no jaundice, Respiratory - Lungs are clear, Cardiovascular - Regular rate and rhythm of heart, Abdomen - Soft, bowel sounds present, nontender, Extremities - No edema or rash. Lab/Imaging: Test performed on Apr 10, 2020 10:36 Ferritin 21 ng/mL Iron 29 mcg/dL Iron Binding Capacity (TIBC) 395 mcg/dl % Iron Saturation 7.3 % UIBC 366 mcg/dL WBC 4.0 10 3/uL RBC 3.22 10 6/uL HGB 10.3 g/dL HCT 35.6 % MCV 110.6 fL MCH 32.0 pg MCHC 28.9 g/dL RDW 14.8 % Platelet Count 114 10 3/cmm MPV 10.4 fL Neutrophils 2.3 10 3/uL Lymphocytes 1.2 10 3/uL Monocytes 0.3 10 3/uL Eosinophils 0.1 10 3/uL Basophils 0.0 10 3/uL Neutrophil % 58.0 % Lymphocyte % 29.9 % Monocyte % 7.7 % Eosinophil % 3.5 % Basophils % 0.7 % NRBC % 0 % Test performed on Jan 23, 2020 11:30 CBC Slide Review Slide Review Perform SLIDE REVIEW AGREES WITH AUTO DIFF. Impression: Iron deficiency anemia etiology unclear could be chronic GI blood loss or iron malabsorption but less likely. Patient had colonoscopy done recently, showed a polyp which was removed and it was benign. Thrombocytopenia etiology could be due to splenic sequestration as recently done CT scan of abdomen shows splenomegaly or low-grade ITP or medication. History of fatty liver Obesity Plan: Discussed with patient regarding his labs white blood count 4 hemoglobin 10.3 g compared to 13.7 g on January 23, 2020, hematocrit 35.6, MCV 110.6 platelets 114,000 and iron studies shows ferritin 21 and iron saturation 7.3% compared to 94.8% and ferritin 50 on January 23, 2020 Clinically, patient is doing reasonably well now with progressive anemia due to iron deficiency confirmed by iron studies. Patient is noncompliant with oral iron due to related side effects e.g. indigestion heartburn epigastric discomfort pain constipation. At this point will consider parenteral iron supplement, all the side effects possible benefits associated with Injectafer were discussed, we will obtain approval from insurance and then consider Injectafer 750 mg IV weekly x2 His anemia also shows macrocytosis which could be due to reticulocytosis other possibility could be B12 deficiency. We will check his B12 level if low consider supplement and he will return to clinic in 1 month with CBC and iron studies As far as liver cirrhosis is concerned, we will refer him to warehouse order picker for evaluation as patient has some alcohol consumption as a young man but not significant to cause cirrhosis. Mild thrombocytopenia probably due to splenic sequestration as recently done CTA scan of abdomen on February 19, 2020 ordered by cardiology showed hepatomegaly with cirrhotic contour to the liver. Coarse hepatic attenuation with fatty infiltration and splenomegaly measuring 14 cm and stable shotty lymph nodes in the aayush hepatis and periaortic. Mild stable aayush hepatis/para-aortic lymphadenopathy is stable could be reactive but low-grade lymphoproliferative disorder cannot be ruled out, will monitor. Patient was also advised to quit smoking, he was offered any assistance he may need. Signed By: Lul Pugh M.D. <<Signature on File>>
[2020-04-15] MEDS: sodium chloride 0.9% (100 ml) 100 ML 300 ML (14:40)
[2020-04-15] MEDS: ferric carboxy (IVPB) 750 MG in sodium chloride 0.9% (100 ml) 100 ML 460 MG IV (14:40)
[2020-04-22] MEDS: ferric carboxy (IVPB) 750 MG in sodium chloride 0.9% (100 ml) 100 ML 460 MG IV (15:13)
== END 2020-04-23 23:59 | disposition home or self-care (01) ==
LOC: ONCMED 06:51
PROVIDERS: PCP Emergency Medicine Emergency Medical Services; Visit Provider Internal Medicine Hematology & Oncology
DX: D50.9 Iron deficiency anemia, unspecified (principal); Z86.010 Personal history of colon polyps; K76.0 Fatty (change of) liver, not elsewhere classified; E66.9 Obesity, unspecified; K74.60 Unspecified cirrhosis of liver; D69.6 Thrombocytopenia, unspecified; R16.2 Hepatomegaly with splenomegaly, not elsewhere classified; Z68.34 Body mass index [BMI] 34.0-34.9, adult; Z91.14 Patient's other noncompliance with medication regimen
CPT/HCPCS: 96365; 99214; J1439

== ENCOUNTER 2020-04-25 05:22 | Emergency (ER) | payer OTHER, SELFPAY ==
[2020-04-25] VITALS (13 sets, daily range): BP systolic 100–137; BP diastolic 42–62; PULSE 111–125; RESP 15–24; TEMP 36.4–37.8; O2SAT 97–100; BMI 37.3
--- NOTE | 2020-04-25 05:27 | CTR_ITS ---
PROCEDURE INFORMATION: Exam: CT Abdomen And Pelvis With Contrast Exam date and time: 04/25/2020 5:44 AM Age: 65 years old Clinical indication: Injury or trauma; Fall; Initial encounter; Blunt; Generalized; Additional info: altered mental status TECHNIQUE: Imaging protocol: Computed tomography of the abdomen and pelvis with intravenous contrast. Radiation optimization: All CT scans at this facility use at least one of these dose optimization techniques: automated exposure control; mA and/or kV adjustment per patient size (includes targeted exams where dose is matched to clinical indication); or iterative reconstruction. Contrast material: [id number]; Contrast volume: 95 ml; Contrast route: INTRAVENOUS (IV); COMPARISON: CT abdomen pelvis w con* [id number] 12/11/2019 10:15 AM RADIATION DOSE METRICS: Total DLP (mGy-cm): 1397.86 FINDINGS: Liver: Mildly a nodular contour to the liver and hypertrophy of the left lobe lateral segment and caudate lobe, consistent with hepatic cirrhosis redemonstrated. Gallbladder and bile ducts: Normal. No calcified stones. No ductal dilation. Pancreas: Moderate pancreatic atrophy. Spleen: Normal. No splenomegaly. Adrenals: Normal. No mass. Kidneys and ureters: Normal. No hydronephrosis. Stomach and bowel: Wall thickening of the ascending and proximal transverse colon. Sigmoid and descending colonic diverticula are present without evidence of diverticulitis. Appendix: No evidence of appendicitis. Intraperitoneal space: Interval moderate right upper quadrant ascites (9.4 Hounsfield units). Vasculature: Marked aortic atherosclerotic calcification without aneurysm. The iliac arteries show marked bilateral atherosclerotic calcifications without evidence of aneurysm. The main portal vein measures 17.3 mm. Lymph nodes: No enlarged lymph nodes. Bladder: Unremarkable as visualized. Reproductive: The prostate gland demonstrates nonspecific parenchymal calcifications. Bones/joints: Right lower lumbar facet primary osteoarthritis. Anterior bridging left sacroiliac joint marginal osteophytes. No pelvic or sacral fracture identified. No acute lumbar spine fracture identified. Grade 1 L5-S1 degenerative type anterolisthesis. Soft tissues: Unremarkable. Other findings: Streak artifact is present from the patient's arms at the side. CT/CT abdomen pelvis w con* [id number] IMPRESSION: 1. Interval moderate right upper quadrant ascites. 2. Hepatic cirrhosis, with evidence of portal venous hypertension. 3. Wall thickening of the ascending and proximal transverse colon. The finding is consistent with mild nonspecific colitis. Clinical correlation with the patient's specific symptomatology is recommended. Consider hepatic enteropathy. 4. Diverticulosis. 5. Chronic calcific prostatitis. 6. No acute injury identified. Radiation Dose CTDIVOL = (mGy): DLP = 1397.86 (mGy-cm)
--- NOTE | 2020-04-25 05:27 | XRR_ITS ---
PROCEDURE INFORMATION: Exam: XR Chest, 1 View Exam date and time: 04/25/2020 6:08 AM Age: 65 years old Clinical indication: Other: Weakness/ams; Prior surgery; Surgery date: 6+ months; Surgery type: Angioplasty; Patient HX: Ams/weak/confused. HX of iron deficiency, diabetes, cirrhosis. HX of COPD TECHNIQUE: Imaging protocol: XR of the chest Views: Frontal portable upright view of the chest. COMPARISON: CR Chest 2 views* [id number] 11/09/2018 9:00 AM FINDINGS: Tubes, catheters and devices: EKG leads are present overlying the chest. Lungs: The lungs are clear bilaterally. The pulmonary vasculature is normal. Pleural space: No pleural effusion. No pneumothorax. Heart/Mediastinum: The heart is normal in size and contour. Mediastinum: Stable. Bones/joints: Right lateral vertebral body marginal osteophytes are noted at multiple thoracic spinal levels. XR/XR chest 1V portable [id number] IMPRESSION: No acute cardiopulmonary abnormality identified.
--- NOTE | 2020-04-25 05:27 | CTR_ITS ---
PROCEDURE INFORMATION: Exam: CT Head Without Contrast Exam date and time: 04/25/2020 5:44 AM Age: 65 years old Clinical indication: Altered mental status/memory loss; Confusion or disorientation; Additional info: AMS TECHNIQUE: Imaging protocol: Computed tomography of the head without contrast. Radiation optimization: All CT scans at this facility use at least one of these dose optimization techniques: automated exposure control; mA and/or kV adjustment per patient size (includes targeted exams where dose is matched to clinical indication); or iterative reconstruction. COMPARISON: No relevant prior studies available. RADIATION DOSE METRICS: Total DLP (mGy-cm): 872.54 FINDINGS: Brain: There are no areas of abnormally increased or decreased brain parenchymal attenuation. There is a roughly 2.1 cm x 1.4 cm focal area of hypodensity in the right frontal white matter adjacent to the right lateral ventricle frontal horn. This is consistent with chronic infarct. No abnormal intra-axial or extra-axial fluid collections are identified. There is no midline shift. No intracranial hemorrhage identified. Ventricles: The ventricular system is within normal limits for size and configuration. Bones/joints: Unremarkable as visualized. Sinuses: Visualized sinuses are unremarkable. No fluid levels. Mastoid air cells: Visualized mastoid air cells are well aerated. Soft tissues: Unremarkable. CT/CT head wo con* [id number] IMPRESSION: 1. No acute intracranial process identified. Radiation Dose CTDIVOL = (mGy): DLP = 872.54 (mGy-cm)
--- NOTE | 2020-04-25 05:28 | ECG_ITS ---
[facility] Test Date: 2020-04-25 Pat Name: Ron Wang Department: Room: Gender: Male Parts Person: : 1955 Requested By: Igor Apodaca Order Number: [id number] Jaswant MD: Noemy Seaman M.D. Measurements Intervals [place] Rate: 115 P: 21 HI: 112 QRS: 71 QRSD: 94 T: 61 QT: 346 QTc: 480 Interpretive Statements SINUS TACHYCARDIA WITH SHORT HI INTERVAL ST DEPRESSION, CONSIDER SUBENDOCARDIAL INJURY [0.1+ mV ST DEPRESSION] No previous ECG available for comparison Electronically Signed On 04-25-2020 20:49:55 CDT by Noemy Seaman M.D. [id number]
--- NOTE | 2020-04-25 05:29 | ED_ITS ---
Documented by User: Igor Apodaca MD 04/25/20 05:33 HPI - Altered Mental Status General: Chief Complaint: Weakness Stated Complaint: WEAKNESS Time Seen by Provider: 04/25/20 05:27 Source: patient and EMS Mode of arrival: EMS History of Present Illness: HPI narrative: 65-year-old male who has a history of iron deficiency anemia diabetes and cirrhosis. Per family patient's been increasingly altered over the last 5 to 6 days. Patient here is alert to self but unable to get full history from him as he is quite confused. Patient is very jaundiced here I see no history of jaundice noted. Patient is afebrile. He denies any pain except for some abdominal pain. He denies any worsening improving factors. Associated symptoms: Deny depression Review of Systems Const: Denies: fever(s), chills, body aches or change in appetite Eyes: Denies: blurry vision or eye discomfort ENMT: Denies: throat pain or dental pain Card: Denies: chest pain Resp: Denies: dyspnea GI: Reports: abdominal pain; Denies: nausea, vomiting or diarrhea : Denies: dysuria Musc: Denies: neck pain or back pain Skin/Breast: Reports: jaundice; Denies: rash Neuro: Denies: headache(s) Psych: Denies: depression Ian/Lymph: Denies: easy bruising All/Imm: Denies: urticaria PFSH ED PFSH: Medical History (Updated 04/25/20 @ 09:27 by Gerardo Craven DO) Cervical disc disorder Chest pain CHF (congestive heart failure) COPD (chronic obstructive pulmonary disease) Diverticula of colon GERD (gastroesophageal reflux disease) Hyperlipidemia Peripheral Vascular Disease Sleep apnea Type 2 diabetes mellitus Surgical History H/O angioplasty H/O eye surgery H/O knee surgery History of appendectomy Social History Smoking and tobacco status: current every day smoker cigarettes Packs smoked per day: 2 Years cigarettes smoked: 50 Quit status (tobacco): not considering quitting Smoking risk assessment/counseling performed?: Yes Alcohol intake: never Lives independently: Yes Household members: spouse Marital status: Current occupational status: retired History of recent travel: No Current gender identity: Male Physical Exam Const: COMMON NORMALS: healthy appearing and alert; negative for patient oriented x3 EXAM LIMITATIONS: altered mental status GENERAL APPEARANCE: in distress and ill appearing ORIENTATION/CONSCIOUSNESS: Yes oriented to person; not oriented to place and not oriented to time HENMT: COMMON NORMALS: normocephalic and atraumatic HEAD & SCALP: norm ocephalic and atraumatic Eye: COMMON NORMALS: Equal, round and reactive pupils present and EOMs intact bilaterally PUPIL: Yes Equal, round and reactive pupils present Neck/C-Spine: COMMON NORMALS: full ROM and supple Chest: COMMONS NORMALS: normal inspection of the chest and normal palpation of entire chest wall Resp: COMMON NORMALS: normal respiratory effort, No retractions, No use of accessory muscles and clear to auscultation bilaterally AUSCULTATION: clear to auscultation bilaterally Cardio: COMMON NORMALS: regular rate and regular rhythm RATE: regular rate RHYTHM: regular rhythm HEART SOUNDS: Murmur heart sound present systolic GI: COMMON NORMALS: Soft to palpation, non-tender and no masses INSPECTION: Yes abdominal wall ecchymosis and Yes abdominal distension PALPATION: Yes Soft to palpation Extremity: COMMON NORMALS: normal to inspection and full ROM Neuro: COMMON NORMALS: moves all extremities and no focal motor deficits; negative for patient oriented x3 SENSORIUM/ORIENTATION: Yes alert, Yes oriented to person, No oriented to place and No oriented to time Psych: COMMON NORMALS: mental status grossly normal, Normal thought process present and cooperative THOUGHT PROCESS: Normal thought process present Skin: COMMON NORMALS: no rashes or lesions noted and no wounds NARRATIVE SKIN EXAM: juandiced GENERAL SKIN EXAM: no rashes or lesions noted Course Vital Signs: Vital signs: Vital Signs Temperature 99.5 F 04/25/20 10:37 Pulse Rate 114 H 04/25/20 10:37 Respiratory Rate 18 04/25/20 10:37 Blood Pressure 137/62 04/25/20 10:37 Pulse Oximetry 99 04/25/20 10:37 MDM - Altered Mental Status Lab Data: Labs: Lab Results 04/25/20 04/25/20 04/25/20 Range/Units 04:37 04:37 04:37 WBC 18.2 H (4.0-10.0) 10^3/ uL RBC 1.66 L (4.1-5.3) 10^6/u L Hgb 5.8 L* (11.7-16.6) g/dL Hct 18.6 L* (42.0-52.0) % MCV 112.0 H (80-94) fL MCH 34.9 H (28.0-34.0) pg MCHC 31.2 (30.0-36.0) g/dL RDW 20.6 H (12.1-15.1) % Plt Count 123 L (130-400) 10^3/c mm MPV 12.4 H (7.4-10.4) fL Neut % (Auto) 79.8 % Lymph % (Auto) 12.4 % Cotton % (Auto) 6.6 % Eos % (Auto) 0.1 % Baso % (Auto) 0.2 % Neut # (Auto) 14.5 H (1.8-7.7) 10^3/u L Lymph # (Auto) 2.3 (0.8-4.8) 10^3/u L Cotton # (Auto) 1.2 H (0.2-0.9) 10^3/u L Eos # (Auto) 0.0 (0.0-0.8) 10^3/u L Baso # (Auto) 0.0 (0.0-0.1) 10^3/u L Nucleated RBC % (a uto) 0.3 % Nucleated RBCs # 0.1 /100WBC PT 17.10 H (10.5-13.3) SECO NDS INR 1.35 H (0.8-1.2) Sodium 138 (136-145) mmol/L Potassium 4.6 (3.5-5.1) mmol/L Chloride 102 (98-107) mmol/L Carbon Dioxide 21 L (22-29) mmol/L Anion Gap 19.6 H (5-19) BUN 28 H (8-23) mg/dL Creatinine 1.2 (0.7-1.2) mg/dL GFR Calculation 61.0 L (90-130) mL/min Glucose 138 H (65-115) mg/dL Calculated Osmolal ity 285 (285-295) mOsm/k g Calcium 8.4 L (8.5-10.5) mg/dL Total Bilirubin 1.2 (0.15-1.2) mg/dL AST 36 (0-40) U/L ALT 25 (0-41) U/L Alkaline Phosphata se 95 (40-130) IU/L Ammonia (16-60) umol/L Total Protein 6.1 L (6.6-8.7) g/dL Albumin 3.4 L (3.5-5.2) g/dL Globulin 2.7 (1.3-4.6) g/dL Lipase 22 (13-60) U/L Ethyl Alcohol < 10 (0-10) mg/dL Blood Type Rho(D) Type Antibody Screen Crossmatch 04/25/20 04/25/20 Range/Units 05:55 07:05 WBC (4.0-10.0) 10^3/ uL RBC (4.1-5.3) 10^6/u L Hgb (11.7-16.6) g/dL Hct (42.0-52.0) % MCV (80-94) fL MCH (28.0-34.0) pg MCHC (30.0-36.0) g/dL RDW (12.1-15.1) % Plt Count (130-400) 10^3/c mm MPV (7.4-10.4) fL Neut % (Auto) % Lymph % (Auto) % Cotton % (Auto) % Eos % (Auto) % Baso % (Auto) % Neut # (Auto) (1.8-7.7) 10^3/u L Lymph # (Auto) (0.8-4.8) 10^3/u L Cotton # (Auto) (0.2-0.9) 10^3/u L Eos # (Auto) (0.0-0.8) 10^3/u L Baso # (Auto) (0.0-0.1) 10^3/u L Nucleated RBC % (a uto) % Nucleated RBCs # /100WBC PT (10.5-13.3) SECO NDS INR (0.8-1.2) Sodium (136-145) mmol/L Potassium (3.5-5.1) mmol/L Chloride (98-107) mmol/L Carbon Dioxide (22-29) mmol/L Anion Gap (5-19) BUN (8-23) mg/dL Creatinine (0.7-1.2) mg/dL GFR Calculation (90-130) mL/min Glucose (65-115) mg/dL Calculated Osmolal ity (285-295) mOsm/k g Calcium (8.5-10.5) mg/dL Total Bilirubin (0.15-1.2) mg/dL AST (0-40) U/L ALT (0-41) U/L Alkaline Phosphata se (40-130) IU/L Ammonia 86 H (16-60) umol/L Total Protein (6.6-8.7) g/dL Albumin (3.5-5.2) g/dL Globulin (1.3-4.6) g/dL Lipase (13-60) U/L Ethyl Alcohol (0-10) mg/dL Blood Type B Positive Rho(D) Type Positive Antibody Screen Negative Crossmatch See Detail Discharge Plan Discharge Patient Disposition: Xfer Other Clinical Impression: Hepatic encephalopathy, Thrombocytopenia, Jaundice, Acute GI bleeding Anemia Qualifiers: Anemia type: iron deficiency Iron deficiency anemia type: unspecified iron deficiency Qualified Code(s): D50.9 - Iron deficiency anemia, unspecified Cirrhosis Qualifiers: Hepatic cirrhosis type: unspecified hepatic cirrhosis Ascites presence: with ascites Qualified Code(s): K74.60 - Unspecified cirrhosis of liver Condition: Fair Coding Level of Care Code ED Section Repairer for Chg Fwd Exam Comprehensive Documented by User: Gerardo Craven DO 04/25/20 10:55 HPI - Altered Mental Status General: Chief Complaint: Weakness Stated Complaint: WEAKNESS Time Seen by Provider: 04/25/20 05:27 [facility] ED PFSH: Medical History (Updated 04/25/20 @ 09:27 by Gerardo Craven DO) Cervical disc disorder Chest pain CHF (congestive heart failure) COPD (chronic obstructive pulmonary disease) Diverticula of colon GERD (gastroesophageal reflux disease) Hyperlipidemia Peripheral Vascular Disease Sleep apnea Type 2 diabetes mellitus Surgical History H/O angioplasty H/O eye surgery H/O knee surgery History of appendectomy Social History Smoking and tobacco status: current every day smoker cigarettes Packs smoked per day: 2 Years cigarettes smoked: 50 Quit status (tobacco): not considering quitting Smoking risk assessment/counseling performed?: Yes Alcohol intake: never Lives independently: Yes Household members: spouse Marital status: Current occupational status: retired History of recent travel: No Current gender identity: Male Course Vital Signs: Vital signs: Vital Signs Temperature 99.5 F 04/25/20 10:37 Pulse Rate 114 H 04/25/20 10:37 Respiratory Rate 18 04/25/20 10:37 Blood Pressure 137/62 04/25/20 10:37 Pulse Oximetry 99 04/25/20 10:37 MDM - Altered Mental Status MDM Narrative: Medical decision making narrative: After discussion with the hospitalist here, I contacted [facility] in [place] to arrange transfer to a facility with gastroenterology. The personnel records clerk convertible power shovel operator at [facility] was contacted and I spoke with him by phone. He felt that even with the elevated ammonia level and altered mental status the patient's cirrhosis could be worked up outpatient. The physician I spoke to at [facility] felt the only reason for this patient to be transferred was for his acute upper GI bleed. After several minutes of discussion with the [facility] physician I made the decision to transfer the pt to a facility other than [facility]. [facility] in [place] was contacted and the pt was accepted for transfer. Lab Data: Labs: Lab Results 04/25/20 04/25/20 04/25/20 Range/Units 04:37 04:37 04:37 WBC 18.2 H (4.0-10.0) 10^3/ uL RBC 1.66 L (4.1-5.3) 10^6/u L Hgb 5.8 L* (11.7-16.6) g/dL Hct 18.6 L* (42.0-52.0) % MCV 112.0 H (80-94) fL MCH 34.9 H (28.0-34.0) pg MCHC 31.2 (30.0-36.0) g/dL RDW 20.6 H (12.1-15.1) % Plt Count 123 L (130-400) 10^3/c mm MPV 12.4 H (7.4-10.4) fL Neut % (Auto) 79.8 % Lymph % (Auto) 12.4 % Cotton % (Auto) 6.6 % Eos % (Auto) 0.1 % Baso % (Auto) 0.2 % Neut # (Auto) 14.5 H (1.8-7.7) 10^3/u L Lymph # (Auto) 2.3 (0.8-4.8) 10^3/u L Cotton # (Auto) 1.2 H (0.2-0.9) 10^3/u L Eos # (Auto) 0.0 (0.0-0.8) 10^3/u L Baso # (Auto) 0.0 (0.0-0.1) 10^3/u L Nucleated RBC % (a uto) 0.3 % Nucleated RBCs # 0.1 /100WBC PT 17.10 H (10.5-13.3) SECO NDS INR 1.35 H (0.8-1.2) Sodium 138 (136-145) mmol/L Potassium 4.6 (3.5-5.1) mmol/L Chloride 102 (98-107) mmol/L Carbon Dioxide 21 L (22-29) mmol/L Anion Gap 19.6 H (5-19) BUN 28 H (8-23) mg/dL Creatinine 1.2 (0.7-1.2) mg/dL GFR Calculation 61.0 L (90-130) mL/min Glucose 138 H (65-115) mg/dL Calculated Osmolal ity 285 (285-295) mOsm/k g Calcium 8.4 L (8.5-10.5) mg/dL Total Bilirubin 1.2 (0.15-1.2) mg/dL AST 36 (0-40) U/L ALT 25 (0-41) U/L Alkaline Phosphata se 95 (40-130) IU/L Ammonia (16-60) umol/L Total Protein 6.1 L (6.6-8.7) g/dL Albumin 3.4 L (3.5-5.2) g/dL Globulin 2.7 (1.3-4.6) g/dL Lipase 22 (13-60) U/L Ethyl Alcohol < 10 (0-10) mg/dL Blood Type Rho(D) Type Antibody Screen Crossmatch 04/25/20 04/25/20 Range/Units 05:55 07:05 WBC (4.0-10.0) 10^3/ uL RBC (4.1-5.3) 10^6/u L Hgb (11.7-16.6) g/dL Hct (42.0-52.0) % MCV (80-94) fL MCH (28.0-34.0) pg MCHC (30.0-36.0) g/dL RDW (12.1-15.1) % Plt Count (130-400) 10^3/c mm MPV (7.4-10.4) fL Neut % (Auto) % Lymph % (Auto) % Cotton % (Auto) % Eos % (Auto) % Baso % (Auto) % Neut # (Auto) (1.8-7.7) 10^3/u L Lymph # (Auto) (0.8-4.8) 10^3/u L Cotton # (Auto) (0.2-0.9) 10^3/u L Eos # (Auto) (0.0-0.8) 10^3/u L Baso # (Auto) (0.0-0.1) 10^3/u L Nucleated RBC % (a uto) % Nucleated RBCs # /100WBC PT (10.5-13.3) SECO NDS INR (0.8-1.2) Sodium (136-145) mmol/L Potassium (3.5-5.1) mmol/L Chloride (98-107) mmol/L Carbon Dioxide (22-29) mmol/L Anion Gap (5-19) BUN (8-23) mg/dL Creatinine (0.7-1.2) mg/dL GFR Calculation (90-130) mL/min Glucose (65-115) mg/dL Calculated Osmolal ity (285-295) mOsm/k g Calcium (8.5-10.5) mg/dL Total Bilirubin (0.15-1.2) mg/dL AST (0-40) U/L ALT (0-41) U/L Alkaline Phosphata se (40-130) IU/L Ammonia 86 H (16-60) umol/L Total Protein (6.6-8.7) g/dL Albumin (3.5-5.2) g/dL Globulin (1.3-4.6) g/dL Lipase (13-60) U/L Ethyl Alcohol (0-10) mg/dL Blood Type B Positive Rho(D) Type Positive Antibody Screen Negative Crossmatch See Detail Discharge Plan Discharge Patient Disposition: Xfer Other Clinical Impression: Hepatic encephalopathy, Thrombocytopenia, Jaundice, Acute GI bleeding Anemia Qualifiers: Anemia type: iron deficiency Iron deficiency anemia type: unspecified iron deficiency Qualified Code(s): D50.9 - Iron deficiency anemia, unspecified Cirrhosis Qualifiers: Hepatic cirrhosis type: unspecified hepatic cirrhosis Ascites presence: with ascites Qualified Code(s): K74.60 - Unspecified cirrhosis of liver Condition: Fair Coding Level of Care Code ED Section Repairer for Chg Fwd Exam Comprehensive
[2020-04-25] MEDS: sodium chloride 0.9% 1,000 ML 999 ML IV (05:30)
[2020-04-25 05:40] LABS: Basophils % 0.2 %; Eosinophils % 0.1 %; Lymphocytes # 2.3 10^3/uL (0.8-4.8); Lymphocytes % 12.4 %; Mean Corpuscular HGB Conc 31.2 g/dL (30.0-36.0); Mean Corpuscular Hemoglobin 34.9 pg (28.0-34.0); Mean Platelet Volume 12.4 fL (7.4-10.4); Monocytes # 1.2 10^3/uL (0.2-0.9); Monocytes % 6.6 %; Neutrophils # 14.5 10^3/uL (1.8-7.7); Neutrophils % 79.8 %; Nucleated Red Blood Cells # 0.1 /100WBC; Nucleated Red Blood Cells % 0.3 %; Platelet Count 123 10^3/cmm (130-400); Red Blood Count 1.66 10^6/uL (4.1-5.3); Red Cell Distribution Width 20.6 % (12.1-15.1); White Blood Count 18.2 10^3/uL (4.0-10.0)
[2020-04-25 05:56] LABS: INR 1.35 (0.8-1.2)
[2020-04-25] MEDS: haloperidol inj 5 mg/mL INJ 1 mL (06:00)
[2020-04-25 06:05] LABS: Alanine Aminotransferase 25 U/L (0-41); Albumin Level 3.4 g/dL (3.5-5.2); Alkaline Phosphatase 95 IU/L (40-130); Anion Gap 19.6 (5-19); Aspartate Amino Transferase 36 U/L (0-40); Blood Urea Nitrogen 28 mg/dL (8-23); Calcium 8.4 mg/dL (8.5-10.5); Carbon Dioxide 21 mmol/L (22-29); Chloride 102 mmol/L (98-107); Globulin 2.7 g/dL (1.3-4.6); Glucose 138 mg/dL (65-115); Lipase 22 U/L (13-60); Osmolality Calculated 285 mOsm/kg (285-295); Potassium 4.6 mmol/L (3.5-5.1); Sodium 138 mmol/L (136-145); Total Bilirubin 1.2 mg/dL (0.15-1.2); Total Protein 6.1 g/dL (6.6-8.7)
[2020-04-25 06:16] LABS: Alcohol Level < 10 mg/dL (0-10)
[2020-04-25 06:26] LABS: Hematocrit 18.6 % (42.0-52.0); Hemoglobin 5.8 g/dL (11.7-16.6)
[2020-04-25] MEDS: haloperidol inj 5 mg/mL INJ 1 mL IVP (06:35)
--- NOTE | 2020-04-25 06:38 | PC.NURSE ---
vo obtained from Dr Rendon due to pt becoming combative during CT exam
[2020-04-25] MEDS: iohexol 300 mg/mL 100 mL Btl IV (06:52)
[2020-04-25 06:58] LABS: Ammonia 86 umol/L (16-60)
[2020-04-25] MEDS: ziprasidone 20 mg/mL SDV 5 MG IM (08:15)
[2020-04-25 13:47] LABS: Add Urine Microscopic? NO
[2020-04-25 13:56] LABS: Bilirubin Urine Neg (NEGATIVE); Blood Urine Neg (Negative); Glucose Urine UA Norm (Normal); Ketones Urine Negative (Negative); Nitrate Urine Negative (Negative); Protein Urine Neg (Negative); Urine Appearance Clear (CLEAR); Urine Color Yellow (Yellow); pH Urine 5 (5-7)
[2020-04-25 13:57] LABS: Leukocyte Esterase Urine Negative (Negative); Urobilinogen Urine Norm (Negative)
--- NOTE | 2020-04-25 16:23 | P.CONIM_ITS ---
Providers/Reason For Consult Consulting Physican/Specialty*: ER Reason for Consult*: Consideration for admission Requesting Physcian: Dr. Cameron History of Present Illness History of Present Illness Ron Wang is a 65 year old male with a past medical history of fatty liver disease, COPD, congestive heart failure, diabetes, hypertension and obstructive sleep apnea that presented to the emergency department today for altered mental status. Unable to obtain any information from patient due to his acute encephalopathy. Information obtained from patient's at bedside, Hammad. She reported that patient has had increased fatigue over the past 1 week but over the past 2 to 3 days he has had increased confusion and over the past 24 to 48 hours increased somnolence and significant confusion. She stated that he has been followed by his primary care provider at the [place], food service attendant, carrier packer and also recently Dr. Pugh due to concern for anemia. She stated that he was told he had some changes to his liver, she denies him drinking heavily, maybe 1-2 times per year. She notes that he continues to smoke and he has had some issues over the past couple of days where he has tried to smoke but had the cigarette in the wrong hand, due to this worsening confusion she brought him into the ER today for further evaluation and treatment. She denies any fevers or chills at home. She reports that the patient has been very sleepy and confused and had decreased appetite. She stated that he is only drink water and Sprite at home, no real nutritional intake. She stated that he has been on iron infusions due to anemia and received his last one last Wednesday. reports that patient has been having very dark stools that appear to look like road tar denies any patient exposure to anyone positive or under investigation for COVID-19 Patient was seen and evaluated in the emergency department noted to have acute anemia and hepatic encephalopathy Review of Systems General: Reports: ROS unobtainable due to medical condition Meds/Allergies Home Medications and Allergies Home Medications Medication Instructions Recorded Confirmed Last Taken Type albuterol sulfate 90 mcg/actuation 2 puff INHALATION Q6H PRN 12/13/19 04/25/20 04/24/20 History aerosol inhaler cetirizine 10 mg tablet 10 mg PO DAILY 12/13/19 04/25/20 04/24/20 History cholecalciferol (vitamin D3) 25 1,000 unit PO DAILY 12/13/19 04/25/20 04/24/20 History mcg (1,000 unit) capsule insulin aspart U-100 100 unit/mL 4 unit SUBCUT TID ml 12/13/19 04/25/20 04/24/20 History subcutaneous cartridge insulin glargine 100 unit/mL 20 unit SUBCUT DAILY ml 12/13/19 04/25/20 04/24/20 History subcutaneous solution olodaterol 2.5 mcg/actuation mist 2 inh INHALATION DAILY 12/13/19 04/25/20 04/24/20 History for inhalation omega-3 fatty acids 1,000 mg 1,000 mg PO DAILY 12/13/19 04/25/20 04/24/20 History capsule aspirin [Adult Aspirin Regimen] 81 mg PO DAILY #30 tab 04/02/20 04/25/20 04/24/20 Rx ferrous sulfate [Iron (ferrous 325 mg PO DAILY 04/02/20 04/25/20 04/24/20 History sulfate)] clopidogrel 75 mg tablet 75 mg PO DAILY 90 Days #90 tab 04/04/20 04/25/20 04/24/20 Rx fluticasone propionate 1 spray INTRANASAL BID PRN 04/25/20 04/25/20 Unknown History furosemide 40 mg PO BID PRN 04/25/20 04/25/20 Unknown History guaifenesin [Mucinex] 600 mg PO Q4H PRN 04/25/20 04/25/20 Unknown History potassium chloride 20 meq PO BID PRN 04/25/20 04/25/20 Unknown History sertraline [Zoloft] 50 mg PO DAILY 04/25/20 04/25/20 04/24/20 History Allergies Allergy/AdvReac Type Severity Reaction Status Date / Time gemfibrozil AdvReac Severe ADR-Cough Verified 04/02/20 08:21 lisinopril AdvReac Severe ADR-Cough Verified 04/02/20 08:21 PFSH Acute PFSH: Medical History Cervical disc disorder Chest pain CHF (congestive heart failure) COPD (chronic obstructive pulmonary disease) Diverticula of colon GERD (gastroesophageal reflux disease) Hyperlipidemia Peripheral Vascular Disease Sleep apnea Type 2 diabetes mellitus Surgical History H/O angioplasty H/O eye surgery H/O knee surgery History of appendectomy Family History (Updated 04/25/20 @ 16:27 by Muna Portillo DO) Father , at the age of 87, no known health problems No problems noted. Mother , at the age of 69 from an [place] CAD (coronary artery disease) Social History Smoking and tobacco status: current every day smoker cigarettes Packs smoked per day: 2 Years cigarettes smoked: 50 Quit status (tobacco): not considering quitting Smoking risk assessment/counseling performed?: Yes Alcohol intake: never Lives independently: Yes Household members: spouse Marital status: Current occupational status: retired History of recent travel: No Current gender identity: Male Vitals/I&O/Wt Last Vital Signs Temp 99.9 F H 04/25/20 12:47 Pulse 114 H 04/25/20 13:36 Resp 20 H 04/25/20 13:36 BP 128/51 04/25/20 13:36 Pulse Ox 97 04/25/20 13:36 04/25/20 04/25/20 04/25/20 06:59 14:59 22:59 Intake Total 1746 / 1746 Balance 1746 / 1746 Weight last 48 hrs Weight 124.738 kg Physical Exam Const: GENERAL APPEARANCE: ill appearing NUTRITIONAL APPEARANCE: overweight ORIENTATION/CONSCIOUSNESS: Yes confused HENMT: COMMON NORMALS: normocephalic and atraumatic HEAD & SCALP: normocephalic and atraumatic Eye: COMMON NORMALS: Equal, round and reactive pupils present PUPIL: Yes Equal, round and reactive pupils present Neck/C-Spine: COMMON NORMALS: supple GENERAL: Yes normal visual inspection Resp: COMMON NORMALS: normal respiratory effort and clear to auscultation bilaterally EFFORT & INSPECTION: Yes able to speak in complete sentences and Yes tachypneic AUSCULTATION: clear to auscultation bilaterally, no rhonchi and no wheezes Cardio: COMMON NORMALS: regular rhythm and No murmurs present (Cardio) RATE: tachycardic RHYTHM: regular rhythm GI: OTHER: Obese, soft, normal bowel sounds with moderate fluid distention : COMMON NORMALS: Yes no CVA tenderness BLADDER/KIDNEY EXAM: Yes no CVA tenderness Back/Pelvis: COMMON NORMALS: no CVA tenderness Extremity: NARRATIVE EXTREMITY EXAM: 1+ pitting edema in the lower extremities bilaterally, negative Homans sign in the lower extremities bilaterally Neuro: OTHER: Patient is lethargic, continues to repeat that he needs to stand up, tries to sit up and has normal upper extremity strength bilaterally but remains significantly confused, and unable to follow commands for further neurologic testing Psych: OTHER: Lethargic, confused Skin: NARRATIVE SKIN EXAM: Jaundiced A&P Assessment and plan (1) Hepatic encephalopathy: Acute hepatic encephalopathy with no specific underlying etiology for cirrhosis reports having been scheduled in the outpatient setting with a GI physician in [place], has not made it to this appointment yet Patient does not drink, not likely alcoholic cirrhosis Recommend gastroenterology consultation at an outside facility with a higher level of care Status: Acute (2) Anemia: Acute on chronic anemia with concern for an upper GI bleed with known cirrhosis. reports tarry like stools over the past several days. Type and screen ordered and transfused packed red blood cells Recommend transfer to a higher level of care for gastroenterology availability due to concern for cirrhosis with acute hepatic encephalopathy and concern for an upper GI bleed with possibility of esophageal varices Status: Acute Qualifiers: Anemia type: iron deficiency Iron deficiency anemia type: unspecified iron deficiency Qualified Code(s): D50.9 - Iron deficiency anemia, unspecified (3) Thrombocytopenia: Secondary to cirrhosis Status: Acute (4) Cirrhosis: Patient's denies any significant alcohol use, IBARRA Recommend gastroenterology consultation with higher level of care Status: Acute Qualifiers: Ascites presence: with ascites Hepatic cirrhosis type: unspecified hepatic cirrhosis Qualified Code(s): K74.60 - Unspecified cirrhosis of liver; R18.8 - Other ascites Additional A&P Information Patient was seen and evaluated in the emergency department order given for lactulose as well as Haldol and Geodon due to patient trying to get up out of bed. After further discussion with patient's significant other at bedside it appears the patient but has been having dark and tarry like stools over the past several days with concern for an upper GI bleed in the setting of thrombocytopenia and cirrhosis. Patient also with hepatic encephalopathy which is new with no known alcohol use and concern for IBARRA, recommend transfer to an outside facility for gastroenterology availability due to concern for upper GI bleed with cirrhosis and hepatic encephalopathy. This was discussed with patient's significant other, she verbalized understanding and agreed with plan. This was discussed with the ER physician, he agreed with plan and patient was transferred to an outside facility Coding Level of Care Code Acute Transverse Abdominal Muscle Nurse for g Fwd Diagnoses Hepatic encephalopathy K72.90 Anemia D50.9 Anemia type: iron deficiency Iron deficiency anemia type: unspecified iron deficiency Thrombocytopenia D69.6 Cirrhosis K74.60; R18.8 Ascites presence: with ascites Hepatic cirrhosis type: unspecified hepatic cirrhosis
== END 2020-04-25 14:07 | disposition other institution (70) ==
PROVIDERS: Emergency Medicine; Emergency Provider Family Medicine
DX: D50.9 Iron deficiency anemia, unspecified (principal); K74.60 Unspecified cirrhosis of liver; R18.8 Other ascites; K72.90 Hepatic failure, unspecified without coma; D69.6 Thrombocytopenia, unspecified; K92.2 Gastrointestinal hemorrhage, unspecified; I50.9 Heart failure, unspecified; J44.9 Chronic obstructive pulmonary disease, unspecified; E78.5 Hyperlipidemia, unspecified; E11.9 Type 2 diabetes mellitus without complications; F17.210 Nicotine dependence, cigarettes, uncomplicated
CPT/HCPCS: 12345; 36415; 36430; 70450; 71045; 74177; 80053; 80307; 81003; 82140; 83690; 85025; 85610; 86850; 86900; 86920; 93005; 96360; 96372; 96375; 99284; 99285; J1630; J3486; J7030; P9016; Q9967

== ENCOUNTER 2020-05-22 06:49 | Outpatient (RCR) | payer OTHER, SELFPAY ==
[2020-05-22 11:26] LABS: Basophils % 0.4 %; Eosinophils # 0.2 10^3/uL (0.0-0.8); Eosinophils % 3.6 %; Hematocrit 38.8 % (42.0-52.0); Hemoglobin 11.3 g/dL (11.7-16.6); Lymphocytes # 1.4 10^3/uL (0.8-4.8); Lymphocytes % 29.3 %; Mean Corpuscular HGB Conc 29.1 g/dL (30.0-36.0); Mean Corpuscular Hemoglobin 30.8 pg (28.0-34.0); Mean Corpuscular Volume 105.7 fL (80-94); Mean Platelet Volume 10.4 fL (7.4-10.4); Monocytes # 0.3 10^3/uL (0.2-0.9); Monocytes % 7.3 %; Neutrophils # 2.77 10^3/uL (1.8-7.7); Neutrophils % 59.2 %; Nucleated Red Blood Cells % 0 %; Platelet Count 131 10^3/cmm (130-400); Red Blood Count 3.67 10^6/uL (4.1-5.3); Red Cell Distribution Width 18.6 % (12.1-15.1); White Blood Count 4.7 10^3/uL (4.0-10.0)
[2020-05-22 15:15] LABS: Ferritin 137 ng/mL (30-400); Iron 53 ug/dL (59-158); Percent Saturation 20.7 % (20-50); Total Iron Binding Capacity 255 mcg/dl; Unsaturated Iron Binding 202 ug/dL (112-347)
--- NOTE | 2020-05-22 16:48 | ONC FU_ITS ---
Dr. Pugh follow up note Patient: Ron Wang Unit #: [id number]: 1955 Dicatated By: Lul Pugh M.D.Date of Visit:May 22, 2020 Onc Med Follow-up/Prog Note History of Present Illness: Mr. Ron Wang, is a 65-year-old gentleman with history of fatty liver, recently diagnosed with iron deficiency anemia, his lab done on 11/10/2019 showed white blood count 6.1, hemoglobin 10.9 platelets 56,000, repeat CBC on 11/21/2019 showed white blood count 5 hemoglobin 10.7 crit 34.1 platelets 52,000, as per PMDs note his hemoglobin was 14 g in April 2019. Patient was started on oral iron supplement once a day in October 2019, he is tolerating it well denies any indigestion denies any constipation denies any abdominal pain or cramps., Denies any shortness of breath or palpitation, denies any melena or hematochezia but darker stools due to oral iron. No hemoptysis or hematemesis. No jaundice. No dyspnea on exertion. Patient has never received blood transfusion. Last colonoscopy was done few months back showed polyp which was removed and it was negative. Patient has history of fatty liver, now being followed by PMD. Patient has CT scan of abdomen pelvis done on 12/11/2019 which shows hepatomegaly with cirrhosis and splenomegaly, spleen is 14 cm and some shotty lymph nodes in aayush hepatis and para-aortic area. Patient denies alcohol use but smoke about 2 packs a day. Denies any night sweats, or weight loss or recent fevers or peripheral lymphadenopathy EGD done in [place], as per patient it showed hiatal hernia. As per patient and family on April 25, 2020 patient came to [facility] with mental status changes and severe anemia he was given 2 units of packed RBC and then he was transferred to [facility] in [place] where he was diagnosed with hepatic encephalopathy as his ammonia level was very high and started on lactulose and he was also diagnosed with GI bleeding and underwent colonoscopy and EGD and patient was given another unit of packed RBC at [facility] in [place] and patient's overall condition continued to improve he was seen by band singer and now he has follow-up appointment with him in about 3 weeks. Patient was also started on oral iron, now tolerating reasonably well but in the recent past he could not tolerate oral iron and discontinued on his own. Came for follow-up, complaining of generalized weakness and fatigue, diarrhea due to lactulose, which he is taking for elevated ammonia level due to chronic liver disease. Patient said he was in the hospital recently with hepatic encephalopathy and severe anemia due to GI bleeding and he has history of non-alcoholic hepatic cirrhosis and being followed by band singer in [facility] and he is scheduled to see him on this Wednesday. Patient denies any melena or hematochezia, denies any hemoptysis or hematemesis, denies any jaundice, denies any shortness of breath or palpitation, denies any hematuria.^No night sweats, no recurrent fever but significant weight loss due to diarrhea and poor appetite] Medications: Albuterol Sulfate 1 Puff(s) (of 108 (90 base) mcg/act) Aerosol Powder, Breath Activated Inhalation daily, [place] 1 Tablet Tablet, effervescent Oral daily, Cetirizine HCl 1 Tablet (of 10 mg) Oral daily, Ferrous Sulfate 1 Tablet (of 325 (65 fe) mg) Oral daily, Flonase 1 Gipsy(s) (of 50 mcg/act) Suspension Nasal daily, Furosemide 1 Tablet (of 40 mg) Oral b.i.d., Lantus 5 Units (of 100 Units/mL) Subcutaneous daily, Metoprolol Tartrate 1 Tablet (of 25 mg) Oral b.i.d., NovoLOG 4 Units (of 100 Units/mL) Subcutaneous t.i.d., Olodaterol HCl 1 Puff(s) (of 2.5 mcg/act) Aerosol, solution Inhalation daily, Pantoprazole Sodium 1 Tablet (of 40 mg) Tablet, enteric coated Oral daily, Plavix 1 Tablet (of 75 mg) Oral daily, Potassium Chloride ER 1 Tablet (of 20 meq) Tablet, controlled release Oral daily, Sertraline HCl 0.5 Tablet (of 100 mg) Oral daily, Ultra [place] 3 1 Capsule (of 1000 mg) Oral daily, Vitamin D 1 Tablet Oral daily Allergies: No Known Allergies. Review of Systems: Constitutional - Appetite is decreased and weight is stable. No fever, chills, hot flashes, or night sweats. Energy level is poor, ENMT - No sinus congestion/drainage. No mouth sores. No sore throat or difficulty swallowing, Hematologic/Lymphatic - No abnormal bruising or bleeding, Respiratory - No shortness of breath. No cough. No pleuritic pain or hemoptysis, Cardiovascular - No angina pain. No palpitations, Gastrointestinal - No nausea or vomiting. No heartburn or acid reflux. No diarrhea or constipation. No blood in the stool or black stools, Genitourinary (M) - No dysuria or hematuria. No urinary frequency. No urgency or incontinence, Musculoskeletal - No joint or bone pain, Neurologic - No headache or dizziness. No numbness/paresthesias or other focal neurologic symptoms, Psychiatric - No anxiety or depression. No insomnia. Vital Signs: Performed on May 22, 2020 12:35 Height - 67.00 in Weight - 196.0 lbs (LOW) BSA - 2.00 sq.m BMI - 30.70 (HIGH) Temperature - 97.8 F (LOW) Pulse - 61 /min Respiration - 24 /min BP - 136/65 mm(hg) O2 Sat - 98 % Pain - 0 Performance Status: 2 - Ambulatory/capable of all self-care, unable to perform any work activities. Up and about more than 50% of waking hours. (ECOG) Physical Examination: ENMT - No mouth sores, no thrush, no jaundice, Respiratory - Lungs are clear, Cardiovascular - Regular rate and rhythm of heart, Abdomen - Soft, bowel sounds present, Extremities - Trace edema bilaterally. Lab/Imaging: Test performed on Apr 12, 2020 10:36 Vitamin B12 578 pg/mL Test performed on Apr 10, 2020 10:36 Ferritin 21 ng/mL Iron 29 mcg/dL Iron Binding Capacity (TIBC) 395 mcg/dl % Iron Saturation 7.3 % UIBC 366 mcg/dL WBC 4.0 10 3/uL RBC 3.22 10 6/uL HGB 10.3 g/dL HCT 35.6 % MCV 110.6 fL MCH 32.0 pg MCHC 28.9 g/dL RDW 14.8 % Platelet Count 114 10 3/cmm MPV 10.4 fL Neutrophils 2.3 10 3/uL Lymphocytes 1.2 10 3/uL Monocytes 0.3 10 3/uL Eosinophils 0.1 10 3/uL Basophils 0.0 10 3/uL Neutrophil % 58.0 % Lymphocyte % 29.9 % Monocyte % 7.7 % Eosinophil % 3.5 % Basophils % 0.7 % NRBC % 0 % Test performed on Jan 23, 2020 11:30 CBC Slide Review Slide Review Perform SLIDE REVIEW AGREES WITH AUTO DIFF. Impression: Iron deficiency anemia etiology unclear could be chronic GI blood loss from Esophageal varices or small bowel AVMsor iron malabsorption but less likely. Patient had colonoscopy done recently, showed a polyp which was removed and it was benign. Thrombocytopenia etiology could be due to splenic sequestration as recently done CT scan of abdomen shows splenomegaly or low-grade ITP or medication. History of fatty liver, Now with episode of hepatic encephalopathy on April 25, 2020 managed with lactulose Obesity Mild stable aayush hepatis/para-aortic lymphadenopathy is stable could be reactive but low-grade lymphoproliferative disorder cannot be ruled out, will monitor Plan: discussed with patient regarding his labs white blood count 7.4 hemoglobin 11.3 hematocrit 38.8 platelets 131,000 Clinically, patient is doing reasonably well, since his last follow-up visit he was given Injectafer 750 mg IV weekly x2 on April 15 and April 22, 2020 and then he was admitted to hospital on April 25, 2020 till May 07, 2020 with hepatic encephalopathy and GI bleeding and he did receive 3 units of packed RBCs for severe anemia, as per family hemoglobin was around 6 g at the time of admission. Today, his follow-up labs showed hemoglobin around 11.3 g and overall patient is feeling somewhat fatigued because of diarrhea with lactulose for elevated ammonia level, which is managed by his PMD patient is also on electrolyte supplements. , He is stable from hematological point of view, hemoglobin in a decent range as well as platelet count and white blood cell as seen on his today's CBC. At this point we will continue to monitor, patient is on oral iron, tolerating well will continue with same and then he will return to clinic in 1 month with CBC. Patient was encouraged to follow-up with band singer for hepatic cirrhosis/hepatic encephalopathy . Signed By: Lul Pugh M.D. <<Signature on File>>
== END 2020-05-24 23:59 | disposition home or self-care (01) ==
LOC: ONCMED 06:49
PROVIDERS: Visit Provider Internal Medicine Hematology & Oncology
DX: D50.9 Iron deficiency anemia, unspecified (principal); D69.6 Thrombocytopenia, unspecified; R16.1 Splenomegaly, not elsewhere classified; K76.0 Fatty (change of) liver, not elsewhere classified; K74.60 Unspecified cirrhosis of liver; K72.90 Hepatic failure, unspecified without coma; R59.0 Localized enlarged lymph nodes; E66.9 Obesity, unspecified; Z68.30 Body mass index [BMI] 30.0-30.9, adult; Z86.010 Personal history of colon polyps; Z79.899 Other long term (current) drug therapy
CPT/HCPCS: 82728; 83540; 83550; 85025; G0463

== ENCOUNTER 2020-06-17 15:59 | Emergency (ER) | payer OTHER, SELFPAY ==
[2020-06-17 16:01] VITALS: BP 155/68; PULSE 77; RESP 24; TEMP 38.3; O2SAT 95; BMI 31.3
--- NOTE | 2020-06-17 16:28 | ECG_ITS ---
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 Measurements Intervals Rachel Rate: 80 P: 52 WY: 153 QRS: 63 QRSD: 98 T: 43 QT: 345 QTc: 399 Interpretive Statements SINUS RHYTHM POSSIBLE LEFT ATRIAL ENLARGEMENT [-0.1mV P WAVE IN V1/V2] Compared to ECG 04/25/2020 06:30:55 Sinus tachycardia no longer present Short WY interval no longer present ST (T wave) deviation no longer present Electronically Signed On 06-18-2020 17:24:48 CDT by Randall Thomas M.D. [id number]
--- NOTE | 2020-06-17 16:28 | XRR_ITS ---
PROCEDURE INFORMATION: Exam: XR Chest, 1 View Exam date and time: 06/17/2020 5:50 PM Age: 65 years old Clinical indication: Cough and dyspnea; Patient HX: Chest pain fever covid precautions; Additional info: Dyspnea/cough TECHNIQUE: Imaging protocol: XR of the chest Views: Frontal portable upright view of the chest. COMPARISON: CR XR chest 1V portable [id number] 04/25/2020 5:59 AM FINDINGS: Lungs: The lungs are clear bilaterally. The pulmonary vasculature is normal. Pleural space: No pleural effusion. No pneumothorax. Heart/Mediastinum: The heart is normal in size and contour. Mediastinum: Stable. Bones/joints: Right lateral vertebral body marginal osteophytes are noted at lower thoracic spinal levels. XR/XR chest 1V portable [id number] IMPRESSION: No acute cardiopulmonary abnormality identified.
--- NOTE | 2020-06-17 16:36 | ED_ITS ---
Documented by User: Marino Santana DO 06/18/20 05:57 HPI - Fever General: Chief Complaint: Fever Stated Complaint: fever Time Seen by Provider: 06/17/20 16:03 History of Present Illness: HPI Narrative: 65-year-old male presents emergency room with a temp of 103 intermittently over the last couple of days. Has been nauseated without vomiting or diarrhea denies chest pain or abdominal pain he has had a cough but is been nonproductive he recently was hospitalized for hepatic encephalopathy. He has IBARRA. He has had elevated ammonia levels in the past his significant other is with him at this visit is concerned he may have that again today.. He also has a history of insulin-dependent diabetes mellitus, they report his blood sugars have remained well controlled. Denies any chest pain. MD elicited complaint: fever Pertinent past history: diabetes Onset (ago): day(s) Exacerbating factors: nothing Relieving factors: nothing Associated symptoms: Reports cough, nasal congestion, nausea and short of breath; Deny flank pain, chills, chest pain or dysuria Treatments prior to arrival fever: none Review of Systems Const: Denies: fever(s), chills, body aches, change in appetite, fatigue or malaise ENMT: Reports: nasal congestion Card: Denies: chest pain, edema, dyspnea on exertion or orthopnea Resp: Denies: dyspnea, productive cough or non-productive cough GI: Reports: nausea : Denies: flank pain, dysuria, urinary frequency or urinary urgency Skin/Breast: Denies: rash or pruritus PFSH ED PFSH: Medical History (Updated 06/17/20 @ 19:29 by Igor Apodaca MD) Cervical disc disorder Chest pain CHF (congestive heart failure) COPD (chronic obstructive pulmonary disease) Diverticula of colon GERD (gastroesophageal reflux disease) Hyperlipidemia 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 Mother , at the age of 69 from an AR CAD (coronary artery disease) Social History Smoking and tobacco status: current every day smoker cigarettes Packs smoked per day: 1 Years cigarettes smoked: 50 [ Other cigarette details: 2 PPD x 50 Year Hx ] Quit status (tobacco): not considering quitting Smoking risk assessment/counseling performed?: Yes Alcohol intake: never Lives independently: Yes Household members: spouse Marital status: Current occupational status: retired History of recent travel: No Current gender identity: Male Physical Exam Const: COMMON NORMALS: no acute distress GENERAL APPEARANCE: cooperative and comfortable ORIENTATION/CONSCIOUSNESS: Yes awake, Yes oriented to person, Yes oriented to place and Yes oriented to time HENMT: COMMON NORMALS: normocephalic, atraumatic and hearing grossly normal bilaterally HEAD & SCALP: normocephalic and atraumatic Eye: COMMON NORMALS: Equal, round and reactive pupils present, EOMs intact bilaterally, conjunctivae normal and no scleral icterus CONJUNCTIVA: Yes conjunctivae normal PUPIL: Yes Equal, round and reactive pupils present Neck/C-Spine: COMMON NORMALS: full ROM, no lymphadenopathy, supple and no JVD Lymph: LYMPHATIC: no lymphadenopathy noted and no lymphedema noted Resp: COMMON NORMALS: normal respiratory effort, No retractions and No use of accessory muscles AUSCULTATION: rales on the left at the base and wheezes left lower Cardio: COMMON NORMALS: no JVD, regular rate, regular rhythm and No murmurs present (Cardio) RATE: regular rate RHYTHM: regular rhythm GI: COMMON NORMALS: Soft to palpation and No hepatosplenomegaly present AUSCULTATION: Yes normoactive bowel sounds PALPATION: Yes Soft to palpation, No Tenderness to palpation present (GI), No Guarding due to palpation present (GI) and Yes No hepatosplenomegaly present Extremity: COMMON NORMALS: normal to inspection, capillary refill normal, no clubbing, cyanosis or edema, no calf tenderness and no pedal edema Neuro: SENSORIUM/ORIENTATION: Yes oriented to person, Yes oriented to place and Yes oriented to time Skin: COMMON NORMALS: no rashes or lesions noted GENERAL SKIN EXAM: no rashes or lesions noted Course Vital Signs: Vital signs: Vital Signs Temperature 102.7 F H 06/17/20 18:17 Pulse Rate 87 06/17/20 19:34 Respiratory Rate 16 06/17/20 19:34 Blood Pressure 134/75 06/17/20 19:34 Pulse Oximetry 96 06/17/20 19:34 MDM - Fever MDM Narrative: Medical decision making narrative: Care turned over to Dr. Apodaca at change of shift see his notes for definitive diagnosis and disposition. Lab Data: Labs: Lab Results 06/17/20 06/17/20 06/17/20 Range/Units 16:05 16:45 16:45 WBC Cancelled Corrected WBC Cancelled RBC Cancelled Hgb Cancelled Hct Cancelled MCV Cancelled MCH Cancelled MCHC Cancelled RDW Cancelled Plt Count Cancelled MPV Cancelled Gran % Cancelled Neut % (Auto) Cancelled Lymph % (Auto) Cancelled [place] % (Auto) Cancelled Eos % (Auto) Cancelled Baso % (Auto) Cancelled Neut # (Auto) Cancelled Lymph # (Auto) Cancelled [place] # (Auto) Cancelled Eos # (Auto) Cancelled Baso # (Auto) Cancelled Absolute Gran (aut o) Cancelled Nucleated RBC % (a uto) Cancelled Nucleated RBCs # Cancelled Fibrinogen (174-498) mg/dL D-Dimer (0-0.59) ug/mIFE U Specimen Type Sample Site ABG pH (7.35-7.45) ABG pCO2 (35-45) mmHg ABG pO2 (80.0-100.0) mmH g ABG HCO3 (22-26) mmol/L ABG Base Excess (-2.0-2.0) mmol/ L Julio Test Hematocrit (42-52) % O2 Delivery Device FiO2 % Clearing Inspector ID Sodium Cancelled Potassium Cancelled Chloride Cancelled Carbon Dioxide Cancelled Anion Gap Cancelled BUN Cancelled Creatinine Cancelled GFR Calculation Cancelled Glucose Cancelled Calculated Osmolal ity Cancelled Calcium Cancelled Ferritin (30-400) ng/mL Total Bilirubin Cancelled AST Cancelled ALT Cancelled Alkaline Phosphata se Cancelled Ammonia Lactate Dehydrogen ase (135-225) U/L C-Reactive Protein (0.0-4.9) mg/L Total Protein Cancelled Albumin Cancelled Globulin Cancelled Urine Color Yellow (Yellow) Urine Appearance Clear (CLEAR) Urine pH 6 (5-7) Ur Specific Gravit y 1.010 (1.005-1.030) Urine Protein Neg (Negative) Urine Glucose (UA) Norm (Normal) Urine Ketones Negative (Negative) Urine Blood Neg (Negative) Urine Nitrate Negative (Negative) Urine Bilirubin Neg (NEGATIVE) Urine Urobilinogen Norm (Negative) mg/dL Ur Leukocyte Maribel ase Negative (Negative) SARS-CoV-2 Ag (Rap id) (Negative) 06/17/20 06/17/20 06/17/20 Range/Units 16:45 16:50 17:34 WBC Corrected WBC RBC Hgb Hct MCV MCH MCHC RDW Plt Count MPV Gran % Neut % (Auto) Lymph % (Auto) [place] % (Auto) Eos % (Auto) Baso % (Auto) Neut # (Auto) Lymph # (Auto) [place] # (Auto) Eos # (Auto) Baso # (Auto) Absolute Gran (aut o) Nucleated RBC % (a uto) Nucleated RBCs # Fibrinogen (174-498) mg/dL D-Dimer (0-0.59) ug/mIFE U Specimen Type Arterial Sample Site Radial, right ABG pH 7.49 H (7.35-7.45) ABG pCO2 29.0 L (35-45) mmHg ABG pO2 77.7 L (80.0-100.0) mmH g ABG HCO3 22.0 (22-26) mmol/L ABG Base Excess -0.4 (-2.0-2.0) mmol/ L Julio Test Pos Hematocrit 40.6 L (42-52) % O2 Delivery Device Room air FiO2 21.0 % Clearing Inspector ID glc Sodium Potassium Chloride Carbon Dioxide Anion Gap BUN Creatinine GFR Calculation Glucose Calculated Osmolal ity Calcium Ferritin (30-400) ng/mL Total Bilirubin AST ALT Alkaline Phosphata se Ammonia Cancelled Lactate Dehydrogen ase (135-225) U/L C-Reactive Protein (0.0-4.9) mg/L Total Protein Albumin Globulin Urine Color (Yellow) Urine Appearance (CLEAR) Urine pH (5-7) Ur Specific Gravit y (1.005-1.030) Urine Protein (Negative) Urine Glucose (UA) (Normal) Urine Ketones (Negative) Urine Blood (Negative) Urine Nitrate (Negative) Urine Bilirubin (NEGATIVE) Urine Urobilinogen (Negative) mg/dL Ur Leukocyte Maribel ase (Negative) SARS-CoV-2 Ag (Rap id) Negative (Negative) 06/17/20 06/17/2020 Range/Units 17:44 17:44 17:44 WBC Corrected WBC RBC Hgb Hct MCV MCH MCHC RDW Plt Count MPV Gran % Neut % (Auto) Lymph % (Auto) [place] % (Auto) Eos % (Auto) Baso % (Auto) Neut # (Auto) Lymph # (Auto) [place] # (Auto) Eos # (Auto) Baso # (Auto) Absolute Gran (aut o) Nucleated RBC % (a uto) Nucleated RBCs # Fibrinogen 344 (174-498) mg/dL D-Dimer 2.60 H (0-0.59) ug/mIFE U Specimen Type Sample Site ABG pH (7.35-7.45) ABG pCO2 (35-45) mmHg ABG pO2 (80.0-100.0) mmH g ABG HCO3 (22-26) mmol/L ABG Base Excess (-2.0-2.0) mmol/ L Julio Test Hematocrit (42-52) % O2 Delivery Device FiO2 % Clearing Inspector ID Sodium 126 L Potassium 4.2 Chloride 93 L Carbon Dioxide 22 Anion Gap 15.2 BUN 9 Creatinine 1.2 GFR Calculation 61.0 L Glucose 135 H Calculated Osmolal ity 260 L Calcium 8.5 Ferritin 152 (30-400) ng/mL Total Bilirubin 0.8 AST 52 H ALT 29 Alkaline Phosphata se 121 Ammonia 81 H Lactate Dehydrogen ase 179 (135-225) U/L C-Reactive Protein 14.0 H (0.0-4.9) mg/L Total Protein 7.7 Albumin 3.8 Globulin 3.9 Urine Color (Yellow) Urine Appearance (CLEAR) Urine pH (5-7) Ur Specific Gravit y (1.005-1.030) Urine Protein (Negative) Urine Glucose (UA) (Normal) Urine Ketones (Negative) Urine Blood (Negative) Urine Nitrate (Negative) Urine Bilirubin (NEGATIVE) Urine Urobilinogen (Negative) mg/dL Ur Leukocyte Maribel ase (Negative) SARS-CoV-2 Ag (Rap id) (Negative) 06/17/20 Range/Units 18:26 WBC 3.4 L Corrected WBC RBC 3.91 L Hgb 12.2 Hct 37.6 L MCV 96.2 H MCH 31.2 MCHC 32.4 RDW 17.2 H Plt Count 79 L MPV 10.4 Gran % Neut % (Auto) 69.6 Lymph % (Auto) 22.1 [place] % (Auto) 7.4 Eos % (Auto) 0.0 Baso % (Auto) 0.3 Neut # (Auto) 2.36 Lymph # (Auto) 0.8 [place] # (Auto) 0.3 Eos # (Auto) 0.0 Baso # (Auto) 0.0 Absolute Gran (aut o) Nucleated RBC % (a uto) 0 Nucleated RBCs # 0.0 Fibrinogen (174-498) mg/dL D-Dimer (0-0.59) ug/mIFE U Specimen Type Sample Site ABG pH (7.35-7.45) ABG pCO2 (35-45) mmHg ABG pO2 (80.0-100.0) mmH g ABG HCO3 (22-26) mmol/L ABG Base Excess (-2.0-2.0) mmol/ L Julio Test Hematocrit (42-52) % O2 Delivery Device FiO2 % Clearing Inspector ID Sodium Potassium Chloride Carbon Dioxide Anion Gap BUN Creatinine GFR Calculation Glucose Calculated Osmolal ity Calcium Ferritin (30-400) ng/mL Total Bilirubin AST ALT Alkaline Phosphata se Ammonia Lactate Dehydrogen ase (135-225) U/L C-Reactive Protein (0.0-4.9) mg/L Total Protein Albumin Globulin Urine Color (Yellow) Urine Appearance (CLEAR) Urine pH (5-7) Ur Specific Gravit y (1.005-1.030) Urine Protein (Negative) Urine Glucose (UA) (Normal) Urine Ketones (Negative) Urine Blood (Negative) Urine Nitrate (Negative) Urine Bilirubin (NEGATIVE) Urine Urobilinogen (Negative) mg/dL Ur Leukocyte Maribel ase (Negative) SARS-CoV-2 Ag (Rap id) (Negative) Discharge Plan Discharge Patient Disposition: Home Clinical Impression: Pneumonia Qualifiers: Pneumonia type: due to unspecified organism Laterality: right Lung location: lower lobe of lung Qualified Code(s): J18.9 - Pneumonia, unspecified organism Condition: Stable Prescriptions: New doxycycline hyclate 100 mg capsule 100 mg PO BID 7 Days Qty: 14 RF: 0 No Action albuterol sulfate 90 mcg/actuation HFA aerosol inhaler 2 puff INHALATION Q6H PRN (Reason: Shortness Of Breath) RF: 0 cholecalciferol (vitamin D3) 25 mcg (1,000 unit) capsule 1,000 unit PO DAILY RF: 0 olodaterol 2.5 mcg/actuation mist 2 inh INHALATION DAILY RF: 0 cetirizine 10 mg tablet 10 mg PO DAILY RF: 0 insulin aspart U-100 100 unit/mL cartridge 4 unit SUBCUT TID RF: 0 insulin glargine 100 unit/mL solution 5 unit SUBCUT DAILY RF: 0 omega-3 fatty acids [Fish Oil Concentrate] 1,000 mg capsule 1,000 mg PO BID RF: 0 pantoprazole 20 mg tablet,delayed release (DR/EC) 20 mg PO DAILY RF: 0 lactulose 20 gram/30 mL solution 20 gm PO BID PRN (Reason: constipation) RF: 0 metoprolol tartrate 25 mg tablet 25 mg PO BID PRNRF: 0 aspirin [Adult Aspirin Regimen] 81 mg tablet,delayed release (DR/EC) 81 mg PO DAILY Qty: 90 RF: 3 ferrous sulfate [Iron (ferrous sulfate)] 325 mg (65 mg iron) Tablet 325 mg PO DAILY RF: 0 Zoloft 100 mg Tablet 50 mg PO DAILY RF: 0 Mucinex 600 mg Tablet Extended Release 12hr 600 mg PO Q4H PRN (Reason: Congestion) RF: 0 furosemide 40 mg tablet 40 mg PO BID PRN (Reason: swelling) RF: 0 potassium chloride 20 mEq tablet extended release 20 meq PO BID RF: 0 Discharge Orders: Discharge Order (Routine); Ordered 06/17/20 Ordered By: Igor Apodaca Referrals: Bryant Magana DO [Primary Care Provider] - 1-3 days Discharge Diet: Advance as tolerated Discharge Activity: Resume usual activity Patient Instructions: Pneumonia (ED) Discharge Date/Time: 06/17/20 19:43 Coding Level of Care Code ED Vessel Captain for Chg Fwd Exam Comprehensive Documented by User: Igor Apodaca MD 06/17/20 19:47 HPI - Fever General: Chief Complaint: Fever Stated Complaint: fever Time Seen by Provider: 06/17/20 16:03 PFSH ED PFSH: Medical History (Updated 06/17/20 @ 19:29 by Igor Apodaca MD) Cervical disc disorder Chest pain CHF (congestive heart failure) COPD (chronic obstructive pulmonary disease) Diverticula of colon GERD (gastroesophageal reflux disease) Hyperlipidemia 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 Mother , at the age of 69 from an AR CAD (coronary artery disease) Social History Smoking and tobacco status: current every day smoker cigarettes Packs smoked per day: 1 Years cigarettes smoked: 50 [ Other cigarette details: 2 PPD x 50 Year Hx ] Quit status (tobacco): not considering quitting Smoking risk assessment/counseling performed?: Yes Alcohol intake: never Lives independently: Yes Household members: spouse Marital status: Current occupational status: retired History of recent travel: No Current gender identity: Male Course Vital Signs: Vital signs: Vital Signs Temperature 102.7 F H 06/17/20 18:17 Pulse Rate 87 06/17/20 19:34 Respiratory Rate 16 06/17/20 19:34 Blood Pressure 134/75 06/17/20 19:34 Pulse Oximetry 96 06/17/20 19:34 MDM - Fever MDM Narrative: Medical decision making narrative: Patient presents with fever and slight dyspnea and x-ray does show a pneumonia. Had a long discussion with him and his he refuses admission adamantly. He states he was in the hospital roughly a month ago he does not want to come back in. I informed his fever is quite high he does have a low sodium and I strongly recommended IV antibiotics. Patient does have medical decision-making capacity. I explained to him that he could get much worse and could even . He understands this and still wants to go home. We will place him on doxycycline I informed if he has any worsening at all he needs to return immediately and if he changes his mind about admission he is to return. He understands and agrees. Lab Data: Labs: Lab Results 06/17/20 06/17/20 06/17/20 Range/Units 16:05 16:45 16:45 WBC Cancelled Corrected WBC Cancelled RBC Cancelled Hgb Cancelled Hct Cancelled MCV Cancelled MCH Cancelled MCHC Cancelled RDW Cancelled Plt Count Cancelled MPV Cancelled Gran % Cancelled Neut % (Auto) Cancelled Lymph % (Auto) Cancelled [place] % (Auto) Cancelled Eos % (Auto) Cancelled Baso % (Auto) Cancelled Neut # (Auto) Cancelled Lymph # (Auto) Cancelled [place] # (Auto) Cancelled Eos # (Auto) Cancelled Baso # (Auto) Cancelled Absolute Gran (aut o) Cancelled Nucleated RBC % (a uto) Cancelled Nucleated RBCs # Cancelled Fibrinogen (174-498) mg/dL D-Dimer (0-0.59) ug/mIFE U Specimen Type Sample Site ABG pH (7.35-7.45) ABG pCO2 (35-45) mmHg ABG pO2 (80.0-100.0) mmH g ABG HCO3 (22-26) mmol/L ABG Base Excess (-2.0-2.0) mmol/ L Julio Test Hematocrit (42-52) % O2 Delivery Device FiO2 % Clearing Inspector ID Sodium Cancelled Potassium Cancelled Chloride Cancelled Carbon Dioxide Cancelled Anion Gap Cancelled BUN Cancelled Creatinine Cancelled GFR Calculation Cancelled Glucose Cancelled Calculated Osmolal ity Cancelled Calcium Cancelled Ferritin (30-400) ng/mL Total Bilirubin Cancelled AST Cancelled ALT Cancelled Alkaline Phosphata se Cancelled Ammonia Lactate Dehydrogen ase (135-225) U/L C-Reactive Protein (0.0-4.9) mg/L Total Protein Cancelled Albumin Cancelled Globulin Cancelled Urine Color Yellow (Yellow) Urine Appearance Clear (CLEAR) Urine pH 6 (5-7) Ur Specific Gravit y 1.010 (1.005-1.030) Urine Protein Neg (Negative) Urine Glucose (UA) Norm (Normal) Urine Ketones Negative (Negative) Urine Blood Neg (Negative) Urine Nitrate Negative (Negative) Urine Bilirubin Neg (NEGATIVE) Urine Urobilinogen Norm (Negative) mg/dL Ur Leukocyte Maribel ase Negative (Negative) SARS-CoV-2 Ag (Rap id) (Negative) 06/17/20 06/17/20 06/17/20 Range/Units 16:45 16:50 17:34 WBC Corrected WBC RBC Hgb Hct MCV MCH MCHC RDW Plt Count MPV Gran % Neut % (Auto) Lymph % (Auto) [place] % (Auto) Eos % (Auto) Baso % (Auto) Neut # (Auto) Lymph # (Auto) [place] # (Auto) Eos # (Auto) Baso # (Auto) Absolute Gran (aut o) Nucleated RBC % (a uto) Nucleated RBCs # Fibrinogen (174-498) mg/dL D-Dimer (0-0.59) ug/mIFE U Specimen Type Arterial Sample Site Radial, right ABG pH 7.49 H (7.35-7.45) ABG pCO2 29.0 L (35-45) mmHg ABG pO2 77.7 L (80.0-100.0) mmH g ABG HCO3 22.0 (22-26) mmol/L ABG Base Excess -0.4 (-2.0-2.0) mmol/ L Julio Test Pos Hematocrit 40.6 L (42-52) % O2 Delivery Device Room air FiO2 21.0 % Clearing Inspector ID glc Sodium Potassium Chloride Carbon Dioxide Anion Gap BUN Creatinine GFR Calculation Glucose Calculated Osmolal ity Calcium Ferritin (30-400) ng/mL Total Bilirubin AST ALT Alkaline Phosphata se Ammonia Cancelled Lactate Dehydrogen ase (135-225) U/L C-Reactive Protein (0.0-4.9) mg/L Total Protein Albumin Globulin Urine Color (Yellow) Urine Appearance (CLEAR) Urine pH (5-7) Ur Specific Gravit y (1.005-1.030) Urine Protein (Negative) Urine Glucose (UA) (Normal) Urine Ketones (Negative) Urine Blood (Negative) Urine Nitrate (Negative) Urine Bilirubin (NEGATIVE) Urine Urobilinogen (Negative) mg/dL Ur Leukocyte Maribel ase (Negative) SARS-CoV-2 Ag (Rap id) Negative (Negative) 06/17/20 06/17/20 06/17/20 Range/Units 17:44 17:44 17:44 WBC Corrected WBC RBC Hgb Hct MCV MCH MCHC RDW Plt Count MPV Gran % Neut % (Auto) Lymph % (Auto) [place] % (Auto) Eos % (Auto) Baso % (Auto) Neut # (Auto) Lymph # (Auto) [place] # (Auto) Eos # (Auto) Baso # (Auto) Absolute Gran (aut o) Nucleated RBC % (a uto) Nucleated RBCs # Fibrinogen 344 (174-498) mg/dL D-Dimer 2.60 H (0-0.59) ug/mIFE U Specimen Type Sample Site ABG pH (7.35-7.45) ABG pCO2 (35-45) mmHg ABG pO2 (80.0-100.0) mmH g ABG HCO3 (22-26) mmol/L ABG Base Excess (-2.0-2.0) mmol/ L Julio Test Hematocrit (42-52) % O2 Delivery Device FiO2 % Clearing Inspector ID Sodium 126 L Potassium 4.2 Chloride 93 L Carbon Dioxide 22 Anion Gap 15.2 BUN 9 Creatinine 1.2 GFR Calculation 61.0 L Glucose 135 H Calculated Osmolal ity 260 L Calcium 8.5 Ferritin 152 (30-400) ng/mL Total Bilirubin 0.8 AST 52 H ALT 29 Alkaline Phosphata se 121 Ammonia 81 H Lactate Dehydrogen ase 179 (135-225) U/L C-Reactive Protein 14.0 H (0.0-4.9) mg/L Total Protein 7.7 Albumin 3.8 Globulin 3.9 Urine Color (Yellow) Urine Appearance (CLEAR) Urine pH (5-7) Ur Specific Gravit y (1.005-1.030) Urine Protein (Negative) Urine Glucose (UA) (Normal) Urine Ketones (Negative) Urine Blood (Negative) Urine Nitrate (Negative) Urine Bilirubin (NEGATIVE) Urine Urobilinogen (Negative) mg/dL Ur Leukocyte Maribel ase (Negative) SARS-CoV-2 Ag (Rap id) (Negative) 06/17/20 Range/Units 18:26 WBC 3.4 L Corrected WBC RBC 3.91 L Hgb 12.2 Hct 37.6 L MCV 96.2 H MCH 31.2 MCHC 32.4 RDW 17.2 H Plt Count 79 L MPV 10.4 Gran % Neut % (Auto) 69.6 Lymph % (Auto) 22.1 [place] % (Auto) 7.4 Eos % (Auto) 0.0 Baso % (Auto) 0.3 Neut # (Auto) 2.36 Lymph # (Auto) 0.8 [place] # (Auto) 0.3 Eos # (Auto) 0.0 Baso # (Auto) 0.0 Absolute Gran (aut o) Nucleated RBC % (a uto) 0 Nucleated RBCs # 0.0 Fibrinogen (174-498) mg/dL D-Dimer (0-0.59) ug/mIFE U Specimen Type Sample Site ABG pH (7.35-7.45) ABG pCO2 (35-45) mmHg ABG pO2 (80.0-100.0) mmH g ABG HCO3 (22-26) mmol/L ABG Base Excess (-2.0-2.0) mmol/ L Julio Test Hematocrit (42-52) % O2 Delivery Device FiO2 % Clearing Inspector ID Sodium Potassium Chloride Carbon Dioxide Anion Gap BUN Creatinine GFR Calculation Glucose Calculated Osmolal ity Calcium Ferritin (30-400) ng/mL Total Bilirubin AST ALT Alkaline Phosphata se Ammonia Lactate Dehydrogen ase (135-225) U/L C-Reactive Protein (0.0-4.9) mg/L Total Protein Albumin Globulin Urine Color (Yellow) Urine Appearance (CLEAR) Urine pH (5-7) Ur Specific Gravit y (1.005-1.030) Urine Protein (Negative) Urine Glucose (UA) (Normal) Urine Ketones (Negative) Urine Blood (Negative) Urine Nitrate (Negative) Urine Bilirubin (NEGATIVE) Urine Urobilinogen (Negative) mg/dL Ur Leukocyte Maribel ase (Negative) SARS-CoV-2 Ag (Rap id) (Negative) Imaging Data^: CT Chest: Attestation: I personally reviewed and interpreted this imaging study as follows: Radiologist's impression: [address] [address] [address] Scan Report Signed Patient: Ron Wang Unit #: [id number] : 1955 Age/Sex: 65 / M ADM Date: 06/17/20 Loc: ER Room/Bed: Attending Dr: Ordering Provider/Ordering MD: Igor Apodaca MD Date of Service: 06/17/20 Procedure(s): CT angio chest PE protcl [id number] Accession Number(s): [id number] Report Number: [id number] PROCEDURE INFORMATION: Exam: CT Angiography Chest With Contrast Exam date and time: 06/17/2020 6:18 PM Age: 65 years old Clinical indication: Fever; Additional info: SOB TECHNIQUE: Imaging protocol: Computed tomographic angiography of the chest with intravenous contrast. 3D rendering (Not supervised by radiologist): MIP and/or 3D reconstructed images were created by the technologist. Radiation optimization: All CT scans at this facility use at least one of these dose optimization techniques: automated exposure control; mA and/or kV adjustment per patient size (includes targeted exams where dose is matched to clinical indication); or iterative reconstruction. Contrast material: OMN I 350; Contrast volume: 74 ml; Contrast route: INTRAVENOUS (IV); COMPARISON: CR XR chest 1V portable [id number] 06/17/2020 5:37 PM RADIATION DOSE METRICS: Total DLP (mGy-cm): 637.33 FINDINGS: Pulmonary arteries: There is no pulmonary embolus. Aorta: Unremarkable. No aortic aneurysm. No aortic dissection. Lungs: There is bronchiectasis. Dependent there is mild ground-glass opacity in the right lung base compatible with mild pneumonitis versus atelectasis. No lobar consolidation. Pleural space: Unremarkable. No pneumothorax. No pleural effusion. Heart: The heart is enlarged. Mediastinal space: A small hiatal hernia is present. Lymph nodes: There is a 1.4 cm short axis subcarinal lymph node. No axillary or hilar adenopathy. Subcentimeter lymph nodes are noted in the retroperitoneum. There is a 1.2 cm short axis lymph node in the aayush hepatis image 512. Liver: The liver has a nodular contour and there is relative hypertrophy of the caudate lobe, consistent with cirrhosis. Gallbladder and bile ducts: Multiple calcified gallstones are present. There is no wall thickening or pericholecystic fluid to suggest cholecystitis. Spleen: There is splenomegaly. Intraperitoneal space: There is a small amount of ascites. Bones/joints: Unremarkable. No acute fracture. Soft tissues: Unremarkable. CT/CT angio chest PE protcl [id number] IMPRESSION: 1. There is no pulmonary embolus. 2. There is dependent atelectasis. Additional asymmetric mild ground-glass opacity in the right lung base may reflect mild pneumonitis and/or atelectasis. 3. The liver has a nodular contour and there is relative hypertrophy of the caudate lobe, consistent with cirrhosis. There is a small amount of ascites and splenomegaly. 4. Cholelithiasis without cholecystitis. 5. Adenopathy in the mediastinum and aayush hepatis. Discharge Plan Discharge Patient Disposition: Home Clinical Impression: Pneumonia Qualifiers: Pneumonia type: due to unspecified organism Laterality: right Lung location: lower lobe of lung Qualified Code(s): J18.9 - Pneumonia, unspecified organism Condition: Stable Prescriptions: New doxycycline hyclate 100 mg capsule 100 mg PO BID 7 Days Qty: 14 RF: 0 No Action albuterol sulfate 90 mcg/actuation HFA aerosol inhaler 2 puff INHALATION Q6H PRN (Reason: Shortness Of Breath) RF: 0 cholecalciferol (vitamin D3) 25 mcg (1,000 unit) capsule 1,000 unit PO DAILY RF: 0 olodaterol 2.5 mcg/actuation mist 2 inh INHALATION DAILY RF: 0 cetirizine 10 mg tablet 10 mg PO DAILY RF: 0 insulin aspart U-100 100 unit/mL cartridge 4 unit SUBCUT TID RF: 0 insulin glargine 100 unit/mL solution 5 unit SUBCUT DAILY RF: 0 omega-3 fatty acids [Fish Oil Concentrate] 1,000 mg capsule 1,000 mg PO BID RF: 0 pantoprazole 20 mg tablet,delayed release (DR/EC) 20 mg PO DAILY RF: 0 lactulose 20 gram/30 mL solution 20 gm PO BID PRN (Reason: constipation) RF: 0 metoprolol tartrate 25 mg tablet 25 mg PO BID PRNRF: 0 aspirin [Adult Aspirin Regimen] 81 mg tablet,delayed release (DR/EC) 81 mg PO DAILY Qty: 90 RF: 3 ferrous sulfate [Iron (ferrous sulfate)] 325 mg (65 mg iron) Tablet 325 mg PO DAILY RF: 0 Zoloft 100 mg Tablet 50 mg PO DAILY RF: 0 Mucinex 600 mg Tablet Extended Release 12hr 600 mg PO Q4H PRN (Reason: Congestion) RF: 0 furosemide 40 mg tablet 40 mg PO BID PRN (Reason: swelling) RF: 0 potassium chloride 20 mEq tablet extended release 20 meq PO BID RF: 0 Discharge Orders: Discharge Order (Routine); Ordered 06/17/20 Ordered By: Igor Apodaca Referrals: Bryant Magana DO [Primary Care Provider] - 1-3 days Discharge Diet: Advance as tolerated Discharge Activity: Resume usual activity Patient Instructions: Pneumonia (ED) Discharge Date/Time: 06/17/20 19:43 Coding Level of Care Code ED Vessel Captain for Chg Fwd Exam Comprehensive
[2020-06-17 16:55] VITALS: BP 155/68; PULSE 78; RESP 18; O2SAT 95
[2020-06-17 16:57] LABS: Add Urine Microscopic? NO
[2020-06-17 17:07] LABS: Bilirubin Urine Neg (NEGATIVE); Blood Urine Neg (Negative); Glucose Urine UA Norm (Normal); Ketones Urine Negative (Negative); Leukocyte Esterase Urine Negative (Negative); Nitrate Urine Negative (Negative); Protein Urine Neg (Negative); Urine Appearance Clear (CLEAR); Urine Color Yellow (Yellow); Urobilinogen Urine Norm (Negative); pH Urine 6 (5-7)
[2020-06-17 17:37] LABS: SARS Covid-2 Antigen Negative (Negative)
[2020-06-17 17:43] LABS: ABG PH Result 7.49 (7.35-7.45); Arterial Blood Gas Hematocrit 40.6 % (42-52); Base Excess ABG -0.4 mmol/L (-2.0-2.0); Blood Gas Allen Test Pos; Blood Gas Operator Identificat glc; Blood Gas Sample Site Radial, right; Blood Gas Sample Type Arterial; Oxygen Device ROOM AIR; PO2 ABG 77.7 mmHg (80.0-100.0)
[2020-06-17] MEDS: cefTRIAXone 1,000 MG in sodium chloride 0.9% (plus) 50 ML 100 MG IV (18:00)
[2020-06-17 18:06] LABS: Fibrinogen 344 mg/dL (174-498)
[2020-06-17 18:10] LABS: Ammonia 81 umol/L (16-60)
[2020-06-17 18:13] LABS: Alanine Aminotransferase 29 U/L (0-41); Albumin Level 3.8 g/dL (3.5-5.2); Alkaline Phosphatase 121 IU/L (40-130); Anion Gap 15.2 (5-19); Aspartate Amino Transferase 52 U/L (0-40); Blood Urea Nitrogen 9 mg/dL (8-23); Calcium 8.5 mg/dL (8.5-10.5); Carbon Dioxide 22 mmol/L (22-29); Chloride 93 mmol/L (98-107); Globulin 3.9 g/dL (1.3-4.6); Glucose 135 mg/dL (65-115); Lactate Dehydrogenase 179 U/L (135-225); Osmolality Calculated 260 mOsm/kg (285-295); Potassium 4.2 mmol/L (3.5-5.1); Sodium 126 mmol/L (136-145); Total Bilirubin 0.8 mg/dL (0.15-1.2); Total Protein 7.7 g/dL (6.6-8.7)
[2020-06-17] MEDS: azithromycin 500 MG in sodium chloride 0.9% 250 ML 250 MG IV (18:14)
[2020-06-17 18:15] VITALS: BP 136/67; PULSE 78; RESP 26; O2SAT 97
--- NOTE | 2020-06-17 18:15 | CTR_ITS ---
PROCEDURE INFORMATION: Exam: CT Angiography Chest With Contrast Exam date and time: 06/17/2020 6:18 PM Age: 65 years old Clinical indication: Fever; Additional info: SOB TECHNIQUE: Imaging protocol: Computed tomographic angiography of the chest with intravenous contrast. 3D rendering (Not supervised by radiologist): MIP and/or 3D reconstructed images were created by the technologist. Radiation optimization: All CT scans at this facility use at least one of these dose optimization techniques: automated exposure control; mA and/or kV adjustment per patient size (includes targeted exams where dose is matched to clinical indication); or iterative reconstruction. Contrast material: OMN I 350; Contrast volume: 74 ml; Contrast route: INTRAVENOUS (IV); COMPARISON: CR XR chest 1V portable [id number] 06/17/2020 5:37 PM RADIATION DOSE METRICS: Total DLP (mGy-cm): 637.33 FINDINGS: Pulmonary arteries: There is no pulmonary embolus. Aorta: Unremarkable. No aortic aneurysm. No aortic dissection. Lungs: There is bronchiectasis. Dependent there is mild ground-glass opacity in the right lung base compatible with mild pneumonitis versus atelectasis. No lobar consolidation. Pleural space: Unremarkable. No pneumothorax. No pleural effusion. Heart: The heart is enlarged. Mediastinal space: A small hiatal hernia is present. Lymph nodes: There is a 1.4 cm short axis subcarinal lymph node. No axillary or hilar adenopathy. Subcentimeter lymph nodes are noted in the retroperitoneum. There is a 1.2 cm short axis lymph node in the aayush hepatis image 512. Liver: The liver has a nodular contour and there is relative hypertrophy of the caudate lobe, consistent with cirrhosis. Gallbladder and bile ducts: Multiple calcified gallstones are present. There is no wall thickening or pericholecystic fluid to suggest cholecystitis. Spleen: There is splenomegaly. Intraperitoneal space: There is a small amount of ascites. Bones/joints: Unremarkable. No acute fracture. Soft tissues: Unremarkable. CT/CT angio chest PE protcl [id number] IMPRESSION: 1. There is no pulmonary embolus. 2. There is dependent atelectasis. Additional asymmetric mild ground-glass opacity in the right lung base may reflect mild pneumonitis and/or atelectasis. 3. The liver has a nodular contour and there is relative hypertrophy of the caudate lobe, consistent with cirrhosis. There is a small amount of ascites and splenomegaly. 4. Cholelithiasis without cholecystitis. 5. Adenopathy in the mediastinum and aayush hepatis. Radiation Dose CTDIVOL = (mGy): DLP = 637.33 (mGy-cm)
[2020-06-17 18:17] VITALS: TEMP 39.3
[2020-06-17 18:33] LABS: Basophils % 0.3 %; Hematocrit 37.6 % (42.0-52.0); Hemoglobin 12.2 g/dL (11.7-16.6); Lymphocytes # 0.8 10^3/uL (0.8-4.8); Lymphocytes % 22.1 %; Mean Corpuscular HGB Conc 32.4 g/dL (30.0-36.0); Mean Corpuscular Hemoglobin 31.2 pg (28.0-34.0); Mean Corpuscular Volume 96.2 fL (80-94); Mean Platelet Volume 10.4 fL (7.4-10.4); Monocytes # 0.3 10^3/uL (0.2-0.9); Monocytes % 7.4 %; Neutrophils # 2.36 10^3/uL (1.8-7.7); Neutrophils % 69.6 %; Nucleated Red Blood Cells % 0 %; Platelet Count 79 10^3/cmm (130-400); Red Blood Count 3.91 10^6/uL (4.1-5.3); Red Cell Distribution Width 17.2 % (12.1-15.1); White Blood Count 3.4 10^3/uL (4.0-10.0)
[2020-06-17 18:37] LABS: Ferritin 152 ng/mL (30-400)
[2020-06-17] MEDS: iohexol 350 mg/mL 100 mL Btl IV (18:58)
--- NOTE | 2020-06-17 19:06 | PC.NURSE ---
report given to ragini rn assumed care.
[2020-06-17 19:34] VITALS: BP 134/75; PULSE 87; RESP 16; O2SAT 96
== END 2020-06-17 19:43 | disposition home or self-care (01) ==
PROVIDERS: Family Medicine; Emergency Provider Emergency Medicine; PCP Emergency Medicine Emergency Medical Services
DX: J18.9 Pneumonia, unspecified organism (principal); Z79.4 Long term (current) use of insulin; Z79.82 Long term (current) use of aspirin; I50.9 Heart failure, unspecified; J44.9 Chronic obstructive pulmonary disease, unspecified; E78.5 Hyperlipidemia, unspecified; E11.9 Type 2 diabetes mellitus without complications; F17.210 Nicotine dependence, cigarettes, uncomplicated
CPT/HCPCS: 12345; 36415; 36600; 71045; 71275; 80053; 81003; 82140; 82728; 82803; 83615; 85025; 85378; 85384; 86140; 87040; 87426; 93005; 96365; 96367; 99283; 99284; J0456; J0696; J7050; Q9967

== ENCOUNTER 2020-06-26 10:17 | Outpatient (RCR) | payer OTHER, SELFPAY ==
[2020-06-26 14:46] LABS: Basophils % 0.5 %; Eosinophils # 0.1 10^3/uL (0.0-0.8); Eosinophils % 2.2 %; Hematocrit 38.6 % (42.0-52.0); Lymphocytes # 1.7 10^3/uL (0.8-4.8); Lymphocytes % 42.6 %; Mean Corpuscular HGB Conc 31.1 g/dL (30.0-36.0); Mean Corpuscular Hemoglobin 31.2 pg (28.0-34.0); Mean Corpuscular Volume 100.3 fL (80-94); Mean Platelet Volume 11.9 fL (7.4-10.4); Monocytes # 0.4 10^3/uL (0.2-0.9); Monocytes % 9.2 %; Nucleated Red Blood Cells % 0 %; Platelet Count 108 10^3/cmm (130-400); Red Blood Count 3.85 10^6/uL (4.1-5.3); Red Cell Distribution Width 17.3 % (12.1-15.1)
[2020-06-26 14:58] LABS: Ferritin 212 ng/mL (30-400); Iron 100 ug/dL (59-158); Percent Saturation 41.3 % (20-50); Total Iron Binding Capacity 242 mcg/dl; Unsaturated Iron Binding 142 ug/dL (112-347)
[2020-06-26 15:54] LABS: Slide Review Slide Review Perform
== END 2020-07-24 23:59 | disposition home or self-care (01) ==
LOC: ONCMED 10:17
PROVIDERS: PCP Emergency Medicine Emergency Medical Services; Visit Provider Internal Medicine Hematology & Oncology
DX: D50.9 Iron deficiency anemia, unspecified (principal)
CPT/HCPCS: 82728; 83540; 83550; 85025

== ENCOUNTER 2020-06-27 06:00 | Outpatient (CLI) | payer OTHER, SELFPAY ==
--- NOTE | 2020-06-27 15:51 | ONC FU_ITS ---
Dr. Pugh follow up note Patient: Ron Wang Unit #: [id number]: [id number] Dicatated By: Lul Pugh M.D.Date of Visit:Jun 27, 2020 Telehealth Progress Note The patient has been informed that the visit may not be secure and acknowledged the information. I have explained the option of participating in a telephone or video visit during the [facility] emergency to the patient. After being given an opportunity to ask questions about and discuss this type of visit, the patient verbally consented to proceeding with the telephone/video visit. the patient understands that this service replaces an office visit and they may be billed and /or responsible for any applicable copayments History of Present Illness: Mr. Ron Wang, is a 65-year-old gentleman with history of fatty liver, recently diagnosed with iron deficiency anemia, his lab done on 11/10/2019 showed white blood count 6.1, hemoglobin 10.9 platelets 56,000, repeat CBC on 11/21/2019 showed white blood count 5 hemoglobin 10.7 crit 34.1 platelets 52,000, as per PMDs note his hemoglobin was 14 g in April 2019. Patient was started on oral iron supplement once a day in October 2019, he is tolerating it well denies any indigestion denies any constipation denies any abdominal pain or cramps., Denies any shortness of breath or palpitation, denies any melena or hematochezia but darker stools due to oral iron. No hemoptysis or hematemesis. No jaundice. No dyspnea on exertion. Patient has never received blood transfusion. Last colonoscopy was done few months back showed polyp which was removed and it was negative. Patient has history of fatty liver, now being followed by PMD. Patient has CT scan of abdomen pelvis done on 12/11/2019 which shows hepatomegaly with cirrhosis and splenomegaly, spleen is 14 cm and some shotty lymph nodes in aayush hepatis and para-aortic area. Patient denies alcohol use but smoke about 2 packs a day. Denies any night sweats, or weight loss or recent fevers or peripheral lymphadenopathy EGD done in [place], as per patient it showed hiatal hernia. As per patient and family on April 25, 2020 patient came to [facility] with mental status changes and severe anemia he was given 2 units of packed RBC and then he was transferred to [facility] in [place] where he was diagnosed with hepatic encephalopathy as his ammonia level was very high and started on lactulose and he was also diagnosed with GI bleeding and underwent colonoscopy and EGD and patient was given another unit of packed RBC at [facility] in [place] and patient's overall condition continued to improve he was seen by checker stocker and now he has follow-up appointment with him in about 3 weeks. Patient was also started on oral iron, now tolerating reasonably well but in the recent past he could not tolerate oral iron and discontinued on his own. Evaluated via telephone, patient denies any specific complaints except chronic diarrhea due to lactulose given by his checker stocker at [place] to keep his ammonia under control. Patient denies any melena or hematochezia but darker stools due to oral iron supplement. Denies any hemoptysis or hematemesis, denies any hematuria denies any jaundice, denies any shortness of breath or palpitation. Patient said about 2 weeks ago he had episode of high-grade fever up to 104f for which he went to hospital where he was diagnosed with pneumonia and treated with IV antibiotics followed by weeklong oral antibiotics now resolved. . Medications: Albuterol Sulfate 1 Puff(s) (of 108 (90 base) mcg/act) Aerosol Powder, Breath Activated Inhalation daily, [place] 1 Tablet Tablet, effervescent Oral daily, Cetirizine HCl 1 Tablet (of 10 mg) Oral daily, Ferrous Sulfate 1 Tablet (of 325 (65 fe) mg) Oral daily, Flonase 1 Bond(s) (of 50 mcg/act) Suspension Nasal daily, Furosemide 1 Tablet (of 40 mg) Oral b.i.d., Lantus 5 Units (of 100 Units/mL) Subcutaneous daily, Metoprolol Tartrate 1 Tablet (of 25 mg) Oral b.i.d., NovoLOG 4 Units (of 100 Units/mL) Subcutaneous t.i.d., Olodaterol HCl 1 Puff(s) (of 2.5 mcg/act) Aerosol, solution Inhalation daily, Pantoprazole Sodium 1 Tablet (of 40 mg) Tablet, enteric coated Oral daily, Plavix 1 Tablet (of 75 mg) Oral daily, Potassium Chloride ER 1 Tablet (of 20 meq) Tablet, controlled release Oral daily, Sertraline HCl 0.5 Tablet (of 100 mg) Oral daily, Ultra [place] 3 1 Capsule (of 1000 mg) Oral daily, Vitamin D 1 Tablet Oral daily Allergies: No Known Allergies. Review of Systems: Review of Systems is not available for this patient. Vital Signs: Vitals are not available for this patient. Performance Status: 1 - No physically strenuous activity, but ambulatory and able to carry out light or sedentary work (e.g. office work, light house work). (ECOG) Physical Examination: ENMT - Denies any mouth sores, denies any thrush denies any jaundice, Respiratory - Denies any shortness of breath or wheezing, Cardiovascular - Denies any palpitation or tachycardia, Abdomen - Denies any abdominal pain or fullness, Extremities - Denies any lower extremity edema. Lab/Imaging: Test performed on May 22, 2020 11:08 Ferritin 137 ng/mL Iron 53 mcg/dL Iron Binding Capacity (TIBC) 255 mcg/dl % Iron Saturation 20.7 % UIBC 202 mcg/dL WBC 4.7 10 3/uL RBC 3.67 10 6/uL HGB 11.3 g/dL HCT 38.8 % MCV 105.7 fL MCH 30.8 pg MCHC 29.1 g/dL RDW 18.6 % Platelet Count 131 10 3/cmm MPV 10.4 fL Neutrophils 2.77 10 3/uL Lymphocytes 1.4 10 3/uL Monocytes 0.3 10 3/uL Eosinophils 0.2 10 3/uL Basophils 0.0 10 3/uL Neutrophil % 59.2 % Lymphocyte % 29.3 % Monocyte % 7.3 % Eosinophil % 3.6 % Basophils % 0.4 % NRBC % 0 % Test performed on Apr 12, 2020 10:36 Vitamin B12 578 pg/mL Test performed on Jan 23, 2020 11:30 CBC Slide Review Slide Review Perform SLIDE REVIEW AGREES WITH AUTO DIFF. Impression: Iron deficiency anemia etiology unclear could be chronic GI blood loss from Esophageal varices or small bowel AVMsor iron malabsorption but less likely. Patient had colonoscopy done recently, showed a polyp which was removed and it was benign. Thrombocytopenia etiology could be due to splenic sequestration as recently done CT scan of abdomen shows splenomegaly or low-grade ITP or medication. History of fatty liver, Now with episode of hepatic encephalopathy on April 25, 2020 managed with lactulose Obesity Mild stable aayush hepatis/para-aortic lymphadenopathy is stable could be reactive but low-grade lymphoproliferative disorder cannot be ruled out, will monitor Plan: Discussed with patient on telephone about his labs white blood count 4 hemoglobin 12 hematocrit 38.6 platelets 108,000 iron saturation 41.3% ferritin 212 compared to 237 on May 22, 2020 Clinically, patient is doing well with no new signs symptoms, his follow-up labs shows hemoglobin in normal range as well as iron stores, tolerating oral iron well, will continue same and repeat his CBC and iron studies in 3 months. Mild thrombocytopenia, platelet count is stable we will continue to monitor Time spent on the phone 7 minutes . Signed By: Lul Pugh M.D. <<Signature on File>>
== END 2020-06-27 06:01 | disposition home or self-care (01) ==
LOC: ONCMED 06:01
PROVIDERS: PCP Emergency Medicine Emergency Medical Services; Visit Provider Internal Medicine Hematology & Oncology
DX: D50.9 Iron deficiency anemia, unspecified (principal); Z86.010 Personal history of colon polyps; D69.6 Thrombocytopenia, unspecified; E66.9 Obesity, unspecified; R59.0 Localized enlarged lymph nodes; K76.0 Fatty (change of) liver, not elsewhere classified; R16.1 Splenomegaly, not elsewhere classified; K76.89 Other specified diseases of liver

== ENCOUNTER → 2020-11-04 11:39 | Outpatient (BNVA) | payer OTHER, SELFPAY | PROVIDERS: PCP Emergency Medicine Emergency Medical Services; Referring Provider Emergency Medicine Emergency Medical Services; Visit Provider Specialist | DX: M17.0 Bilateral primary osteoarthritis of knee (principal); M25.562 Pain in left knee; M25.561 Pain in right knee; M25.462 Effusion, left knee; M25.461 Effusion, right knee | CPT/HCPCS: 73560; 73565 ==

== ENCOUNTER 2021-09-01 09:57 | Outpatient (CLI) | payer OTHER, SELFPAY ==
[2021-09-01 10:55] LABS: Basophils % 0.5 %; Eosinophils # 0.2 10^3/uL (0.0-0.8); Eosinophils % 2.9 %; Hematocrit 37.3 % (42.0-52.0); Hemoglobin 12.5 g/dL (11.7-16.6); Lymphocytes # 1.7 10^3/uL (0.8-4.8); Lymphocytes % 30.9 %; Mean Corpuscular HGB Conc 33.5 g/dL (30.0-36.0); Mean Corpuscular Hemoglobin 33.7 pg (28.0-34.0); Mean Corpuscular Volume 100.5 fl (80-94); Mean Platelet Volume 11.6 fL (7.4-10.4); Monocytes # 0.4 10^3/uL (0.2-0.9); Monocytes % 7.3 %; Neutrophils # 3.19 10^3/uL (1.8-7.7); Nucleated Red Blood Cells % 0 %; Platelet Count 76 10^3/cmm (130-400); Red Blood Count 3.71 10^6/uL (4.1-5.3); White Blood Count 5.5 10^3/uL (4.0-10.0)
[2021-09-01 11:21] LABS: Alanine Aminotransferase 18 U/L (0-41); Albumin Level 3.2 g/dL (3.5-5.2); Alkaline Phosphatase 159 IU/L (40-130); Aspartate Amino Transferase 27 U/L (0-40); Blood Urea Nitrogen 8 mg/dL (8-23); Calcium 8.7 mg/dL (8.5-10.5); Carbon Dioxide 19 mmol/L (22-29); Chloride 103 mmol/L (98-107); Glucose 140 mg/dL (65-115); Osmolality Calculated 283 mOsm/kg (285-295); Sodium 136 mmol/L (136-145); Total Bilirubin 1.4 mg/dL (0.15-1.2); Total Protein 7.2 g/dL (6.6-8.7)
[2021-09-01 11:23] LABS: Anion Gap 18.2 (5-19); Potassium 4.2 mmol/L (3.5-5.1)
--- NOTE | 2021-09-01 17:22 | ONC FU_ITS ---
Dr. Pugh follow up note Patient: Ron Wang Unit #: [id number]: [id number] Dicatated By: Lul Pugh M.D.Date of Visit:Sep 01, 2021 Onc Med Follow-up/Prog Note History of Present Illness: Mr. Ron Wang, is a 66-year-old gentleman with history of fatty liver, recently diagnosed with iron deficiency anemia, his lab done on 11/10/2019 showed white blood count 6.1, hemoglobin 10.9 platelets 56,000, repeat CBC on 11/21/2019 showed white blood count 5 hemoglobin 10.7 crit 34.1 platelets 52,000, as per PMDs note his hemoglobin was 14 g in April 2019. Patient was started on oral iron supplement once a day in October 2019, he is tolerating it well denies any indigestion denies any constipation denies any abdominal pain or cramps., Denies any shortness of breath or palpitation, denies any melena or hematochezia but darker stools due to oral iron. No hemoptysis or hematemesis. No jaundice. No dyspnea on exertion. Patient has never received blood transfusion. Last colonoscopy was done few months back showed polyp which was removed and it was negative. Patient has history of fatty liver, now being followed by PMD. Patient has CT scan of abdomen pelvis done on 12/11/2019 which shows hepatomegaly with cirrhosis and splenomegaly, spleen is 14 cm and some shotty lymph nodes in aayush hepatis and para-aortic area. Patient denies alcohol use but smoke about 2 packs a day. Denies any night sweats, or weight loss or recent fevers or peripheral lymphadenopathy EGD done in [place], as per patient it showed hiatal hernia. As per patient and family on April 25, 2020 patient came to [facility] with mental status changes and severe anemia he was given 2 units of packed RBC and then he was transferred to [facility] in [place] where he was diagnosed with hepatic encephalopathy as his ammonia level was very high and started on lactulose and he was also diagnosed with GI bleeding and underwent colonoscopy and EGD and patient was given another unit of packed RBC at [facility] in [place] and patient's overall condition continued to improve he was seen by recruitment advertising manager and now he has follow-up appointment with him in about 3 weeks. Patient was also started on oral iron, now tolerating reasonably well but in the recent past he could not tolerate oral iron and discontinued on his own. Came for follow-up, denies any specific complaint except episode of severe thrombocytopenia during his follow-up with his PMD as per patient his labs checked on August 14, 2021 shows platelet count gone down to 21,000 compared to 79,000 on July 08, 2021, lab was repeated there was still low so at that time he was just advised to see us. Patient denies any gum bleed or melena hematochezia or hemoptysis or hematemesis, denies any nosebleed. Denies any dysuria or hematuria, denies any petechiae but old healing ecchymosis on the hand. Patient denies any recent infection, denies any new medication. Denies any abdominal fullness but patient is on lactulose for hepatic encephalopathy. As per patient he is transferring his care to recruitment advertising manager in [facility]. . Medications: Albuterol Sulfate 1 Puff(s) (of 108 (90 base) mcg/act) Aerosol Powder, Breath Activated Inhalation daily, Cetirizine HCl 1 Tablet (of 10 mg) Oral daily, Folic Acid Tablet Oral, Furosemide 1 Tablet (of 40 mg) Oral b.i.d., Lantus 5 Units (of 100 Units/mL) Subcutaneous daily, Metoprolol Tartrate 1 Tablet (of 25 mg) Oral b.i.d., NovoLOG 4 Units (of 100 Units/mL) Subcutaneous t.i.d., Olodaterol HCl 1 Puff(s) (of 2.5 mcg/act) Aerosol, solution Inhalation daily, Pantoprazole Sodium 1 Tablet (of 40 mg) Tablet, enteric coated Oral daily, Sertraline HCl 0.5 Tablet (of 100 mg) Oral daily, Spironolactone Tablet Oral, Ultra [place] 3 1 Capsule (of 1000 mg) Oral daily, Vitamin D 1 Tablet Oral daily Allergies: No Known Allergies. Review of Systems: Review of Systems is not available for this patient. Vital Signs: Performed on Sep 01, 2021 11:35 Height - 67.00 in Weight - 225.2 lbs (HIGH) BSA - 2.13 sq.m BMI - 35.27 (HIGH) Temperature - 98.8 F Pulse - 64 /min Respiration - 18 /min BP - 150/66 mm(hg) (HIGH) O2 Sat - 98 % Pain - 0 Fatigue - 7 Performance Status: 1 - No physically strenuous activity, but ambulatory and able to carry out light or sedentary work (e.g. office work, light house work). (ECOG) Physical Examination: ENMT - No mouth sores, no thrush, no jaundice, no cervical lymphadenopathy, Respiratory - Lungs are clear to auscultation, Cardiovascular - Regular rate and rhythm of heart s, Abdomen - Soft, bowel sounds present, Extremities - No visible edema. Lab/Imaging: Most recent lab results are not available for this patient. Impression: Iron deficiency anemia etiology unclear could be chronic GI blood loss from Esophageal varices or small bowel AVMsor iron malabsorption but less likely. Patient had colonoscopy done recently, showed a polyp which was removed and it was benign. Thrombocytopenia etiology could be due to splenic sequestration as recently done CT scan of abdomen shows splenomegaly or low-grade ITP or medication. History of fatty liver, Now with episode of hepatic encephalopathy on April 25, 2020 managed with lactulose Obesity Mild stable aayush hepatis/para-aortic lymphadenopathy is stable could be reactive but low-grade lymphoproliferative disorder cannot be ruled out, will monitor Plan: .Discussed with patient regarding his labs white blood count 5.5 hemoglobin 12.5 hematocrit 37.3 platelets 76,000 CMP within normal limit except bilirubin 1.4 and albumin 3.2 Clinically, patient doing well with no signs symptom suggestive of acute or chronic bleeding his follow-up lab done today shows improvement in his isolated thrombocytopenia now at baseline around 70,000 in fact today it is 76,000 compared to 79,000 in June but as per lab work-up from his PMDs office his platelet count did drop to 21,000 on August 14, 2021, etiology remains unclear Could be due to clumping or subacute infection but somehow now count has improved and now close to baseline. Patient thrombocytopenia is most likely multifactorial including due to splenic sequestration as patient has splenomegaly due to hepatic cirrhosis. No further work-up from hematology point of view rather observation alone, as per patient he is scheduled for follow-up CT scan of abdomen pelvis by his recruitment advertising manager which is scheduled for next month so we will see him back in first week of October with CBC at that time we will also review his CT scan findings to see if patient has persistent splenomegaly or progressive splenomegaly. Patient was advised to call us in case there is evidence of gross bleeding. Signed By: Lul Pugh M.D. <<Signature on File>>
== END 2021-09-01 09:58 | disposition home or self-care (01) ==
PROVIDERS: PCP Emergency Medicine Emergency Medical Services; Visit Provider Internal Medicine Hematology & Oncology
DX: D50.0 Iron deficiency anemia secondary to blood loss (chronic) (principal); I85.01 Esophageal varices with bleeding; D69.6 Thrombocytopenia, unspecified; E66.9 Obesity, unspecified; Z68.35 Body mass index [BMI] 35.0-35.9, adult; Z79.899 Other long term (current) drug therapy
CPT/HCPCS: 36415; 80053; 85025; 99214

== ENCOUNTER 2021-10-29 13:08 | Outpatient (CLI) | payer OTHER, SELFPAY ==
[2021-10-29 13:51] LABS: Basophils % 0.6 %; Eosinophils # 0.1 10^3/uL (0.0-0.8); Eosinophils % 2.6 %; Hematocrit 38.2 % (42.0-52.0); Hemoglobin 12.8 g/dL (11.7-16.6); Lymphocytes # 1.7 10^3/uL (0.8-4.8); Lymphocytes % 32.1 %; Mean Corpuscular HGB Conc 33.5 g/dL (30.0-36.0); Mean Corpuscular Hemoglobin 33.9 pg (28.0-34.0); Mean Corpuscular Volume 101.1 fl (80-94); Mean Platelet Volume 10.7 fL (7.4-10.4); Monocytes # 0.4 10^3/uL (0.2-0.9); Monocytes % 7.9 %; Neutrophils # 3.02 10^3/uL (1.8-7.7); Neutrophils % 56.4 %; Nucleated Red Blood Cells % 0 %; Platelet Count 84 10^3/cmm (130-400); Red Blood Count 3.78 10^6/uL (4.1-5.3); Red Cell Distribution Width 15.9 % (12.1-15.1); White Blood Count 5.4 10^3/uL (4.0-10.0)
[2021-10-29 14:10] LABS: Ferritin 157 ng/mL (30-400); Iron 120 ug/dL (59-158); Percent Saturation 42.8 % (20-50); Total Iron Binding Capacity 280 mcg/dl; Unsaturated Iron Binding 160 ug/dL (112-347)
--- NOTE | 2021-10-29 15:39 | ONC FU_ITS ---
Dr. Pugh follow up note Patient: Ron Wang Unit #: [id number]: [id number] Dicatated By: Lul Pugh M.D.Date of Visit:Oct 29, 2021 Onc Med Follow-up/Prog Note History of Present Illness: Mr. Ron Wang, is a 66-year-old gentleman with history of fatty liver, recently diagnosed with iron deficiency anemia, his lab done on 11/10/2019 showed white blood count 6.1, hemoglobin 10.9 platelets 56,000, repeat CBC on 11/21/2019 showed white blood count 5 hemoglobin 10.7 crit 34.1 platelets 52,000, as per PMDs note his hemoglobin was 14 g in April 2019. Patient was started on oral iron supplement once a day in October 2019, he is tolerating it well denies any indigestion denies any constipation denies any abdominal pain or cramps., Denies any shortness of breath or palpitation, denies any melena or hematochezia but darker stools due to oral iron. No hemoptysis or hematemesis. No jaundice. No dyspnea on exertion. Patient has never received blood transfusion. Last colonoscopy was done few months back showed polyp which was removed and it was negative. Patient has history of fatty liver, now being followed by PMD. Patient has CT scan of abdomen pelvis done on 12/11/2019 which shows hepatomegaly with cirrhosis and splenomegaly, spleen is 14 cm and some shotty lymph nodes in aayush hepatis and para-aortic area. Patient denies alcohol use but smoke about 2 packs a day. Denies any night sweats, or weight loss or recent fevers or peripheral lymphadenopathy EGD done in [place], as per patient it showed hiatal hernia. As per patient and family on April 25, 2020 patient came to [facility] with mental status changes and severe anemia he was given 2 units of packed RBC and then he was transferred to [facility] in [place] where he was diagnosed with hepatic encephalopathy as his ammonia level was very high and started on lactulose and he was also diagnosed with GI bleeding and underwent colonoscopy and EGD and patient was given another unit of packed RBC at [facility] in [place] and patient's overall condition continued to improve he was seen by operator helper and now he has follow-up appointment with him in about 3 weeks. Patient was also started on oral iron, now tolerating reasonably well but in the recent past he could not tolerate oral iron and discontinued on his own. Came for follow-up, denies any specific complaints, no fever chills, no nausea or vomiting, no diarrhea or constipation, no melena hematochezia, no hemoptysis hematemesis, no jaundice, no abdominal pain or fullness, no hematuria or dysuria, no gum bleed, no nosebleed, no petechiae. As per patient he has seen his liver doctor, as per patient he has very early stage cirrhosis, at this point just monitoring in fact his operator helper has discontinued lactulose too. . Medications: Albuterol Sulfate 1 Puff(s) (of 108 (90 base) mcg/act) Aerosol Powder, Breath Activated Inhalation daily, Cetirizine HCl 1 Tablet (of 10 mg) Oral daily, Folic Acid Tablet Oral, Furosemide 1 Tablet (of 40 mg) Oral b.i.d., Lantus 5 Units (of 100 Units/mL) Subcutaneous daily, Metoprolol Tartrate 1 Tablet (of 25 mg) Oral b.i.d., NovoLOG 4 Units (of 100 Units/mL) Subcutaneous t.i.d., Olodaterol HCl 1 Puff(s) (of 2.5 mcg/act) Aerosol, solution Inhalation daily, Pantoprazole Sodium 1 Tablet (of 40 mg) Tablet, enteric coated Oral daily, Sertraline HCl 0.5 Tablet (of 100 mg) Oral daily, Spironolactone 1 Tablet (of 25 mg) Oral daily, Ultra [place] 3 1 Capsule (of 1000 mg) Oral daily, Vitamin D 1 Tablet Oral daily Allergies: No Known Allergies. Review of Systems: Review of Systems is not available for this patient. Vital Signs: Performed on Oct 29, 2021 14:38 Height - 67.00 in Weight - 215.6 lbs (LOW) BSA - 2.09 sq.m BMI - 33.77 (HIGH) Temperature - 98.6 F Pulse - 61 /min Respiration - 18 /min BP - 145/74 mm(hg) (HIGH) O2 Sat - 99 % Pain - 0 Fatigue - 0 Performance Status: 0 - Fully active, able to carry on all predisease activities without restrictions. (ECOG) Physical Examination: ENMT - No mouth sores, no thrush, no jaundice, Respiratory - Lungs are clear to auscultation, Cardiovascular - Regular rate and rhythm of heart, Abdomen - Soft, bowel sounds present, Extremities - No visible edema. Lab/Imaging: Most recent lab results are not available for this patient. Impression: Iron deficiency anemia etiology unclear could be chronic GI blood loss from Esophageal varices or small bowel AVMsor iron malabsorption but less likely. Patient had colonoscopy done recently, showed a polyp which was removed and it was benign. Thrombocytopenia etiology could be due to splenic sequestration as recently done CT scan of abdomen shows splenomegaly or low-grade ITP or medication. History of fatty liver, Now with episode of hepatic encephalopathy on April 25, 2020 managed with lactulose Obesity Mild stable aayush hepatis/para-aortic lymphadenopathy is stable could be reactive but low-grade lymphoproliferative disorder cannot be ruled out, will monitor Plan: Discussed with patient regarding his labs white blood count 5.4 hemoglobin 12.8 g medical 38.2 platelets 84,000 compared to 76,000 previously iron studies shows iron saturation 42.8% ferritin 157 iron [address] scan of abdomen done on October 20, 2021 shows unchanged prominent mediastinal/axillary lymph nodes, no mention about size, bilateral gynecomastia, patient has moderate abdominal ascites with a relatively small liver, suggesting cirrhosis adrenal gland normal, no mention about spleen size, No mention about aayush hepatis or para-aortic lymphadenopathy Clinically, patient doing well with no new signs symptoms suggestive of gross bleeding, his follow-up labs shows hemoglobin in normal range and mild/moderate but stable isolated thrombocytopenia, now improving his platelet count is 84,000 compared to 76,000 previously. At this point we will continue to monitor, patient return to clinic in 3 months with CBC Signed By: Lul Pugh M.D. <<Signature on File>>
== END 2021-10-29 13:09 | disposition home or self-care (01) ==
LOC: ONCMED 13:11
PROVIDERS: PCP Emergency Medicine Emergency Medical Services; Visit Provider Internal Medicine Hematology & Oncology
DX: D50.9 Iron deficiency anemia, unspecified (principal); K63.5 Polyp of colon; D69.6 Thrombocytopenia, unspecified; E66.9 Obesity, unspecified; Z68.33 Body mass index [BMI] 33.0-33.9, adult; R59.0 Localized enlarged lymph nodes; Z86.39 Personal history of other endocrine, nutritional and metabolic disease; Z79.899 Other long term (current) drug therapy
CPT/HCPCS: 36415; 82728; 83540; 83550; 85025; 99214

== ENCOUNTER → 2022-01-15 12:10 | Outpatient (BNVA) | payer OTHER, SELFPAY | PROVIDERS: PCP Emergency Medicine Emergency Medical Services; Visit Provider Internal Medicine Critical Care Medicine | DX: J98.4 Other disorders of lung (principal); K74.60 Unspecified cirrhosis of liver; K75.81 Nonalcoholic steatohepatitis (NASH); G47.33 Obstructive sleep apnea (adult) (pediatric); F17.210 Nicotine dependence, cigarettes, uncomplicated | CPT/HCPCS: 99214 ==

== ENCOUNTER → 2022-03-17 09:51 | Outpatient (BNVA) | payer OTHER, SELFPAY | PROVIDERS: PCP Emergency Medicine Emergency Medical Services; Visit Provider Surgery | DX: R10.11 Right upper quadrant pain (principal) | CPT/HCPCS: 99204 ==

== ENCOUNTER 2022-05-12 09:39 | Outpatient (CLI) | payer OTHER, SELFPAY ==
--- NOTE | 2022-05-12 10:00 | NM_ITS ---
WS: [id number] NUCLEAR MEDICINE HIDA SCAN CLINICAL INFORMATION: RUQ abd pain TECHNIQUE: Following intravenous administration of 7.3 mCi of technetium 99m mebrofenin, images of th e abdomen were obtained over the course of 60 minutes. Next, gallbladder ejection fraction was determ ined by obtaining preprandial and one-hour postprandial images of the gallbladder following oral israel stion of Ensure. COMPARISON: CT April 25, 2020 FINDINGS: Cirrhotic liver. Normal hepatic uptake and excretion. Gallbladder is visualized at 15 minutes. No nando dence of acute cholecystitis. Normal small bowel and common bile duct activity Gallbladder ejection fraction 93% within normal limits. No evidence of chronic cholecystitis. NM/NM hepatobiliary w phar* [id number] IMPRESSION: 1. No evidence of acute or chronic cholecystitis. 2. Gallbladder ejection fraction 93% within normal limits. 3. Cirrhotic liver
== END 2022-05-12 09:40 | disposition home or self-care (01) ==
LOC: RAD 09:40
PROVIDERS: PCP Emergency Medicine Emergency Medical Services; Visit Provider Surgery
DX: R10.11 Right upper quadrant pain (principal); K74.60 Unspecified cirrhosis of liver
CPT/HCPCS: 78227; A9537

== ENCOUNTER → 2022-05-19 13:29 | Outpatient (BNVA) | payer OTHER, SELFPAY | PROVIDERS: PCP Emergency Medicine Emergency Medical Services; Visit Provider Surgery | DX: Z09 Encounter for follow-up examination after completed treatment for conditions other than malignant neoplasm (principal); R10.11 Right upper quadrant pain | CPT/HCPCS: 99214 ==

== ENCOUNTER → 2022-06-25 13:45 | Outpatient (BNVA) | payer OTHER, SELFPAY | PROVIDERS: PCP Emergency Medicine Emergency Medical Services; Visit Provider Internal Medicine Cardiovascular Disease | DX: I11.0 Hypertensive heart disease with heart failure (principal); I50.32 Chronic diastolic (congestive) heart failure; I73.9 Peripheral vascular disease, unspecified; K74.60 Unspecified cirrhosis of liver; K75.81 Nonalcoholic steatohepatitis (NASH); F17.210 Nicotine dependence, cigarettes, uncomplicated | CPT/HCPCS: 99214 ==

== ENCOUNTER → 2022-07-20 08:43 | Outpatient (BNVA) | payer OTHER, SELFPAY | PROVIDERS: PCP Emergency Medicine Emergency Medical Services; Visit Provider Internal Medicine Critical Care Medicine | DX: J98.4 Other disorders of lung (principal); G47.33 Obstructive sleep apnea (adult) (pediatric); K75.81 Nonalcoholic steatohepatitis (NASH); K74.60 Unspecified cirrhosis of liver; F17.210 Nicotine dependence, cigarettes, uncomplicated; Z99.89 Dependence on other enabling machines and devices | CPT/HCPCS: 99214 ==

== ENCOUNTER 2022-07-29 10:23 | Oncology outpatient (recurring) (ONCR) | payer OTHER, SELFPAY ==
[2022-07-29 11:03] LABS: Basophils # 0.1 10^3/uL (0.0-0.1); Basophils % 0.8 %; Eosinophils # 0.3 10^3/uL (0.0-0.8); Eosinophils % 4.7 %; Hematocrit 35.5 % (42.0-52.0); Hemoglobin 12.1 g/dL (11.7-16.6); Lymphocytes # 2.2 10^3/uL (0.8-4.8); Lymphocytes % 33.5 %; Mean Corpuscular HGB Conc 34.1 g/dL (30.0-36.0); Mean Corpuscular Hemoglobin 34.9 pg (28.0-34.0); Mean Corpuscular Volume 102.3 fl (80-94); Mean Platelet Volume 10.9 fL (7.4-10.4); Monocytes # 0.6 10^3/uL (0.2-0.9); Monocytes % 8.5 %; Neutrophils # 3.42 10^3/uL (1.8-7.7); Nucleated Red Blood Cells % 0 %; Platelet Count 62 10^3/cmm (130-400); Red Blood Count 3.47 10^6/uL (4.1-5.3); Red Cell Distribution Width 14.3 % (12.1-15.1); White Blood Count 6.6 10^3/uL (4.0-10.0)
== END 2022-08-24 23:59 | disposition home or self-care (01) ==
PROVIDERS: PCP Emergency Medicine Emergency Medical Services; Visit Provider Internal Medicine Hematology & Oncology
DX: D69.6 Thrombocytopenia, unspecified (principal); D50.9 Iron deficiency anemia, unspecified; R16.2 Hepatomegaly with splenomegaly, not elsewhere classified; K74.60 Unspecified cirrhosis of liver; F17.210 Nicotine dependence, cigarettes, uncomplicated; K44.9 Diaphragmatic hernia without obstruction or gangrene; R59.0 Localized enlarged lymph nodes; Z79.899 Other long term (current) drug therapy
CPT/HCPCS: 36415; 85025; 99214